=== PATIENT | male | born 1945 | race Caucasian/White ===

== ENCOUNTER → 2017-10-31 | Outpatient (CLI) | payer OTHER ==
[~2017-10-31] MED LIST: ADJUSTABLE COMM1 MIS; ASPI81TA81 PO; BRIN1SUS2 EACH EYE; CETI10CA3 P-ARTICULR; CPMMACHINE; DICL75TA PO; DOCU1CAP39 PO; FINA5TAB2 PO; FLUT1SPR5 EACH NARE; GLUC500T4 PO; LATA0.002 EACH EYE; MULT-65 PO; OMEP20TA93 PO; SACC1CAP3 PO; TAMS0.4C4 PO; VIAG100T PO; VITA500C18 PO; WALKER WHEELS/F1 MIS
[2017-10-31 10:52] LABS: AUTOMATED NEUTROPHIL # 5.2 TH/MM3 (1.8-7.7); BASOPHIL # 0.1 TH/MM3 (0-0.2); EOSINOPHIL # 0.3 TH/MM3 (0-0.4); EOSINOPHIL % 3.8 % (0.0-4.0); HEMATOCRIT 42.3 % (39.0-51.0); HEMOGLOBIN 14.4 GM/DL (13.0-17.0); LYMPH % 19.7 % (9.0-44.0); LYMPHOCYTE # 1.5 TH/MM3 (1.0-4.8); MEAN CELL VOLUME 89.5 FL (80.0-100.0); MEAN CORPUSCULAR HEMOGLOBIN 30.4 PG (27.0-34.0); MEAN PLATELET VOLUME 8.1 FL (7.0-11.0); MONO % 6.6 % (0.0-8.0); MONOCYTE # 0.5 TH/MM3 (0-0.9); NEUT % 68.9 % (16.0-70.0); PLATELET COUNT 257 TH/MM3 (150-450); RED BLOOD COUNT 4.73 MIL/MM3 (4.50-5.90); RED CELL DISTRIBUTION WIDTH 13.4 % (11.6-17.2); WHITE BLOOD COUNT 7.6 TH/MM3 (4.0-11.0)
[2017-10-31 10:59] LABS: PROTHROMBIN TIME - PATIENT 10.6 SEC (9.8-11.6)
[2017-10-31 11:04] LABS: BILIRUBIN, URINE NEG (NEG); BLOOD, URINE SMALL (NEG); GLUCOSE,URINE NEG (NEG); KETONE, URINE NEG (NEG); MUCUS URINE MANY /lpf (OCC); NITRITE,URINE NEG (NEG); SPERM, URINE RARE; URINE COLOR YELLOW (YELLW/STRAW); URINE LEUKOCYTE ESTERASE NEG (NEG)
[2017-10-31 11:26] LABS: ALBUMIN 3.8 GM/DL (3.4-5.0); AST (GOT) 21 U/L (15-37); BICARBONATE 31.5 MEQ/L (21.0-32.0); BLOOD UREA NITROGEN 16 MG/DL (7-18); CALCIUM 9.2 MG/DL (8.5-10.1); CHLORIDE 104 MEQ/L (98-107); CREATININE 1.11 MG/DL (0.60-1.30); GLOMERULAR FILTRATION RATE 65 ML/MIN (>89); GLUCOSE,FASTING 96 MG/DL (74-99); SODIUM (NA) 141 MEQ/L (136-145)
[2017-10-31 11:33] LABS: ALKALINE PHOSPHATASE 83 U/L (45-117); ALT (GPT) 34 U/L (12-78); TOTAL BILIRUBIN ADULT 0.6 MG/DL (0.2-1.0); TOTAL PROTEIN 7.4 GM/DL (6.4-8.2)
== END ==
LOC: CPRE 08:23
PROVIDERS: ATTEND Surgery
DX: Z01.812 Encounter for preprocedural laboratory examination (principal); M79.609 Pain in unspecified limb
CPT/HCPCS: 36415; 80053; 81001; 85025; 85610; 85730

== ENCOUNTER 2017-11-06 09:33 | Inpatient (IN) | payer MEDICARE ==
--- NOTE | 2017-11-01 14:19 | MH ---
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 PAST MEDICAL HISTORY: The patient has history of anxiety, sciatica, and sleep apnea. CURRENT MEDICATIONS: Simbrinza, Omeprazole, tamsulosin, finasteride. He stopped his anti-inflammatory agent. PAST SURGICAL HISTORY: Include hernia repair, appendectomy, tonsillectomy. REVIEW OF SYSTEMS: Noncontributory. FAMILY HISTORY: Noncontributory. SOCIAL HISTORY: Does not smoke or drink. ALLERGIES: NO KNOWN ALLERGIES. PHYSICAL EXAMINATION: GENERAL: We find a 72-year-old male, well-developed, well-nourished, oriented x 3, complaining of pain in both knees. VITAL SIGNS: Blood pressure 138/72, pulse 68 and regular, respirations 18, temperature 98.2, pulse oximetry 96% on room air. HEENT: PERRLA, EOMI. Ears, nose, mouth clear. NECK: Supple. LUNGS: Clear. HEART: Regular rate. ABDOMEN: Soft, positive bowel sounds, nontender. EXTREMITIES: Revealed both knees to have genu varus deformity and crepitance throughout range of motion. He is neurovascularly intact to his toes. IMPRESSION: Severe painful osteoarthritic degeneration with genu varus deformities of both knees. PLAN: Admission for bilateral total knee arthroplasties today. The patient was given prescription for postop pain and anticoagulation control in the office. Plans are going to rehab after surgical stay in the hospital. Chandrakant Trujillo MD JRR/TL , 01:59 PM , 02:17 PM
[~2017-11-06] VITALS: Ht 177.8 cm; Wt 102.3 kg
[~2017-11-06 09:33] MED LIST changes: -ADJUSTABLE COMM1 MIS; -CPMMACHINE; -DOCU1CAP39 PO; -WALKER WHEELS/F1 MIS
[2017-11-06] MEDS ORDERED: POVIDONE IODINE 5% (ANTISEPSIS KIT) 4 APPLICATIONS EACH NARE PRN (11:15)
[2017-11-06] MEDS ORDERED: SODIUM CHLORID 0.9% 500 ML IV PRN (11:15)
[2017-11-06] MEDS ORDERED: METOPROLOL TARTRATE 25 MG TAB PO PRN (11:15)
[2017-11-06] MEDS ORDERED: CHLORHEXIDINE GLUCONATE 2 % 1 PACK (2 CLOTHS) TOPICAL PRN (11:15)
[2017-11-06] MEDS ORDERED: LACTATED RINGER'S 1000 ML IV PRN (11:15)
[2017-11-06] MEDS ORDERED: VANCOMYCIN 1 GM/200 ML INJ 200 ML IV ONE (11:35)
[2017-11-06] MEDS ORDERED: DEXAMETHASONE SOD PHOS 20 MG/5 ML VIAL ONE (11:35)
[2017-11-06] MEDS ORDERED: APREPITANT 40 MG CAP ONE (11:36)
[2017-11-06] MEDS ORDERED: ceFAZolin INJ 1,000 MG VIAL ONE (11:54)
[2017-11-06] MEDS ORDERED: ceFAZolin 2 GM PREMIX 50 ML ONE (11:54)
[2017-11-06] MEDS ORDERED: DICL75TA PO (11:54)
[2017-11-06] MEDS ORDERED: VANCOMYCIN 1 GM/200 ML PREMIX IV SCH (12:00)
[2017-11-06] MEDS ORDERED: ROCURONIUM INJ 50 MG/5 ML SYRINGE IV PUSH ONE (12:00)
[2017-11-06] MEDS ORDERED: DEXAMETHASONE SOD PHOS 20 MG/5 ML VIAL IV PUSH ONE (12:00)
[2017-11-06] MEDS ORDERED: PROPOFOL 200 MG/20 ML AMP IV ONE (12:00)
[2017-11-06] MEDS ORDERED: ceFAZolin 2 GM PREMIX 50 ML IV SCH (12:00)
[2017-11-06] MEDS ORDERED: ePHEDrine/NS 25 MG/5 ML SYRINGE IV ONE (12:00)
[2017-11-06] MEDS ORDERED: LIDOCAINE HCL 1% PF 5 ML SYRINGE OTHER ONE (12:00)
[2017-11-06] MEDS ORDERED: ONDANSETRON HCL 4 MG/2 ML VIAL IV PUSH ONE (12:00)
[2017-11-06] MEDS ORDERED: CHLORHEXIDINE GLUCONATE 4% SOLN 120 ML BTL TOPICAL SCH (12:00)
--- NOTE | 2017-11-06 12:06 | EKG ---
Date Performed: 11/06/2017 Time Performed: 11:12:30 PTAGE: 72 years EKG: Sinus rhythm NORMAL ECG NO PREVIOUS TRACING DOCTOR: Erick Shelton Interpretating Date/Time 11/06/2017 12:05:58
[2017-11-06] MEDS ORDERED: BUPIVACAINE LIPOSO PF 1.3% INJ 20 ML, BUPIVACAINE PF 0.25% INJ 20 ML in SODIUM CHLORIDE... P-ARTICULR SCH (13:00)
[2017-11-06] MEDS ORDERED: TRANEXAMIC ACID IV SCH ×2 (13:00→16:00)
[2017-11-06] MEDS ORDERED: SODIUM CHLORIDE 0.9% IV SCH ×2 (13:00→16:00)
[2017-11-06] MEDS ORDERED: ACETAMINOPHEN 1000 MG/100 ML 100 ML IV ONE (16:25)
[2017-11-06] MEDS ORDERED: MIDAZOLAM HCL 2 MG/2 ML VIAL ONE (16:26)
[2017-11-06] MEDS ORDERED: ADJUSTABLE COMM1 MIS (16:45)
[2017-11-06] MEDS ORDERED: diphenhydrAMINE HCL 50 MG/ML VIAL IV PUSH PRN (16:45)
[2017-11-06] MEDS ORDERED: WALKER WHEELS/F1 MIS (16:45)
[2017-11-06] MEDS ORDERED: NALOXONE HCL 0.4 MG/ML AMP IV PUSH PRN ×2 (16:45)
[2017-11-06] MEDS ORDERED: ACETAMINOPHEN 325 MG TAB PO PRN (16:45)
[2017-11-06] MEDS ORDERED: TEMAZEPAM 15 MG CAP PO PRN (16:45)
[2017-11-06] MEDS ORDERED: TRANEXAMIC ACID INJ 0 MG in SODIUM CHLORIDE 0.9% INJ 100 ML IV SCH (16:45)
[2017-11-06] MEDS ORDERED: HYDROmorphone HCL PF 2 MG/ML VIAL IV PUSH PRN (16:45)
[2017-11-06] MEDS ORDERED: CPMMACHINE (16:45)
[2017-11-06] MEDS ORDERED: Post-op Orders (for Pharmacy) XX ONE (16:45)
--- NOTE | 2017-11-06 16:49 | MP ---
cc: Chandrakant Trujillo MD DATE OF OPERATION: 11/06/2017 DATE OF SURGERY: 11/06/2017. PREOPERATIVE DIAGNOSIS: Osteoarthritic degeneration, right and left knees. POSTOPERATIVE DIAGNOSIS: Osteoarthritic degeneration, right and left knees. SURGERY PERFORMED: Right and left total knee arthroplasties using Consensus components. The left side was done first and the left side components were a size 6 femur, 4 tibia, 10 insert and size 2 patella with 2 batches of DePuy cement. The right knee was done with a size 5 femur, 4 tibia, 14 standard insert and size 2 patella with 2 batches of DePuy cement. SURGEON: Chandrakant Trujillo MD CARDIOLOGY CONSULTANT: SAHIL Peters ANESTHESIA: General intubation. PROCEDURE: After successful induction of anesthesia, the patient is placed on the operating room table in the supine position. The knee is prepped and draped in the usual manner. A tourniquet is inflated at the upper thigh and set to 300 mmHg pressure after exsanguination of the lower extremity. A longitudinal incision is made extending from 3 inches proximal to the superior pole of the patella, across the patella in longitudinal fashion, and down past the insertion of the tibial tubercle into the proximal tibia. The incision is carried down through subcutaneous tissue along the medial aspect of the patella and retinaculum, down through the capsule to expose the knee joint. The patella and patellar tendon are freed up enough to allow the patella to be inverted and retracted off the lateral side of the knee joint. The knee joint is left exposed. Small osteophytes are removed. All soft tissue is removed to allow proper position of the femoral and tibial cutting jig guide. The first femoral jig is then inserted along the distal end of the femur after first measuring to decide whether this is a small, medium, or large component. The notch is then drilled and the tibial cutting guide inserted into the femoral cutting guide, along with the ankle brace to allow for proper measurement of the tibial cutting surface that needed to be resected. Pins are inserted into the tibial cutting jig and femoral cutting jig to hold them in place. An oscillating saw is then used to resect the surface of the tibia. The surface of the tibia is then completely removed using sharp and blunt dissection. The anterior and posterior cuts of the femur are then made as well using an oscillating saw through the cutting guide. All guides are then removed and the varus/valgus angulation cutting guide applied to the femur for proper measurement of the proper amount of valgus. The anterior cutting guide for the femur is then inserted at the anterior femoral cuts made. Next, the first block trial is inserted into the femur to allow for proper condyle drill holes to be made which are then made followed by removal of the bone between the condyles using an oscillating saw as well as the bone removed at the most posterior surface of the condyle. After this, this guide is removed and the chamfer cuts made using the chamfer cutting guide from both anterior and posterior. Next, the femoral trial is then inserted, the tibial surface reflected anterior to expose the tibial surface and a tibial stem guide is inserted after first measuring for a standard, standard plus, large, or large plus surface to be used. After the stem is impacted the trial tibial surface is applied followed by the trial meniscal components. After full range of motion is found with the appropriate length meniscal components varying the patella is prepared by resecting the posterior aspect of the patella using an oscillating saw, inserting a trial. The trial is then removed and the cruciate cutting guide applied using the bur to cut the cruciate cuts. After cruciate cuts are made all trials are removed. The wound is irrigated copiously with antibiotic solution and Water Pik and the actual components inserted into place using the aforementioned Consensus components. The left side was done first and the left side components were a size 6 femur, 4 tibia, 10 insert and size 2 patella with 2 batches of DePuy cement. After the cement has hardened and the components are found to have full range of motion with no instability, the tourniquet is deflated, total tourniquet time being 56 minutes. 60 mL of a mixture of Exparel, 0.25% Marcaine plain and saline was injected around the knee joint for extra pain control. The deep fascia was approximated with #0 Stratafix and supplemented with interrupted #1 Vicryl suture, subcutaneous tissue approximated using interrupted 2-0 Monocryl suture and size 3-0 Stratafix subcu, followed by Prineo dressing and knee immobilizer. No drain utilized. Estimated blood loss on the left knee was 100 mL. Sponge and suture counts were correct. The right knee was then approached and, after successful induction of anesthesia, the patient is placed on the operating room table in the supine position. The knee is prepped and draped in the usual manner. A tourniquet is inflated at the upper thigh and set to 300 mmHg pressure after exsanguination of the lower extremity. A longitudinal incision is made extending from 3 inches proximal to the superior pole of the patella, across the patella in longitudinal fashion, and down past the insertion of the tibial tubercle into the proximal tibia. The incision is carried down through subcutaneous tissue along the medial aspect of the patella and retinaculum, down through the capsule to expose the knee joint. The patella and patellar tendon are freed up enough to allow the patella to be inverted and retracted off the lateral side of the knee joint. The knee joint is left exposed. Small osteophytes are removed. All soft tissue is removed to allow proper position of the femoral and tibial cutting jig guide. The first femoral jig is then inserted along the distal end of the femur after first measuring to decide whether this is a small, medium, or large component. The notch is then drilled and the tibial cutting guide inserted into the femoral cutting guide, along with the ankle brace to allow for proper measurement of the tibial cutting surface that needed to be resected. Pins are inserted into the tibial cutting jig and femoral cutting jig to hold them in place. An oscillating saw is then used to resect the surface of the tibia. The surface of the tibia is then completely removed using sharp and blunt dissection. The anterior and posterior cuts of the femur are then made as well using an oscillating saw through the cutting guide. All guides are then removed and the varus/valgus angulation cutting guide applied to the femur for proper measurement of the proper amount of valgus. The anterior cutting guide for the femur is then inserted at the anterior femoral cuts made. Next, the first block trial is inserted into the femur to allow for proper condyle drill holes to be made which are then made followed by removal of the bone between the condyles using an oscillating saw as well as the bone removed at the most posterior surface of the condyle. After this, this guide is removed and the chamfer cuts made using the chamfer cutting guide from both anterior and posterior. Next, the femoral trial is then inserted, the tibial surface reflected anterior to expose the tibial surface and a tibial stem guide is inserted after first measuring for a standard, standard plus, large, or large plus surface to be used. After the stem is impacted the trial tibial surface is applied followed by the trial meniscal components. After full range of motion is found with the appropriate length meniscal components varying the patella is prepared by resecting the posterior aspect of the patella using an oscillating saw, inserting a trial. The trial is then removed and the cruciate cutting guide applied using the bur to cut the cruciate cuts. After cruciate cuts are made all trials are removed. The wound is irrigated copiously with antibiotic solution and Water Pik and the actual components inserted into place using the aforementioned Consensus components. The right knee was done with a size 5 femur, 4 tibia, 14 standard insert and size 2 patella with 2 batches of DePuy cement. 60 mL of Exparel was used around the knee joint for extra pain control and after meticulous hemostasis was achieved. The deep fascia was again approximated with #0 Stratafix and supplemented with interrupted #1 Vicryl suture which was also used to repair the remains of the medial collateral ligament for extra stability. The subcutaneous tissue was reapproximated with running 2-0 Monocryl and size 3-0 Stratafix, Prineo dressing and knee immobilizer. Once again no drain was utilized. Total tourniquet time on the right being 67 minutes at 300 mmHg pressure. Estimated blood loss was 100 cc. Sponge and suture counts were correct. The patient tolerated the procedure well and left the operating room in satisfactory condition. SAHIL Peters, was present during the entire procedure to include patient positioning and the procedure. The medical necessity of the nurse practitioner first front ventilator was indicated in this case due to the surgical complexity of the case itself. During the surgical case, the automation control technician was working the back table while my surgical services asst SAHIL was directly assisting me. JMD MICHAEL Elizalde/MONICA , 04:27 PM , 04:48 PM
--- NOTE | 2017-11-06 17:07 | HHI.PR ---
Immediate Post Op Note Procedure Date: Nov 06, 2017 Pre Op Diagnosis: Osteoarthritic degeneration of both left and right knees Post Op Diagnosis: Osteoarthritic degeneration of both left and right knees Surgeon: Chandrakant Trujillo MD Marketing/Sales Person(s): Andreea BAXTER Procedure: Bilateral Total Knees Arthroplasty Complications: none Specimen(s) removed: none Estimated blood loss: 200cc Anesthesia: General Drains: None IVF Urinary Output (mLs): 0 (No Pizarro) Tourniquet time (min at mmHg) Left knee 56 mins at 300mmHg Right Knee 67 mins at 300mmHg Patient to: PACU Patient Condition: Good Implant/Devices: SEE IMPLANT LOG (if applicable) Date/Time of Procedure: SEE SURGICAL CARE RECORD Andreea Rai Nov 06, 2017 17:07
[2017-11-06] MEDS ORDERED: *morphine SULFATE 8 MG/ML PERIprocedure ONLY ONE (17:20)
[2017-11-06] MEDS: LACTATED RINGER'S 1000 ML INJ 1,000 ML IV SCH (17:30)
--- NOTE | 2017-11-06 17:46 | RADRPT ---
EXAM DATE: 11/06/2017 5:39 PM EDT AGE/SEX: 72 years / Male INDICATIONS: Post op left total knee. CLINICAL DATA: This is the patient's initial encounter. Patient reports that signs and symptoms have been present for 1 day and indicates a pain score of Nonresponsive. MEDICAL/SURGICAL HISTORY: . Unobtainable. . Unobtainable. COMPARISON: No prior [facility] exams available for comparison. FINDINGS: Left total knee arthroplasty is noted. The hardware is intact. Alignment is anatomic. CONCLUSION: Satisfactory postop appearance Electronically signed by: Evangelista Mayorga MD 11/06/2017 5:44 PM EDT
--- NOTE | 2017-11-06 17:47 | RADRPT ---
EXAM DATE: 11/06/2017 5:38 PM EDT AGE/SEX: 72 years / Male INDICATIONS: Post op right total knee. CLINICAL DATA: This is the patient's initial encounter. Patient reports that signs and symptoms have been present for 1 day and indicates a pain score of Nonresponsive. MEDICAL/SURGICAL HISTORY: . Unobtainable. . Unobtainable. COMPARISON: No prior [facility] exams available for comparison. FINDINGS: Total knee arthroplasty is present. The hardware is intact. Alignment is anatomic. CONCLUSION: Satisfactory postop appearance Electronically signed by: Evangelista Mayorga MD 11/06/2017 5:46 PM EDT
[2017-11-06] MEDS ORDERED: ONDANSETRON ODT 4 MG TAB PO PRN (18:00)
[2017-11-06] MEDS ORDERED: DO NOT ADM ANY ANTICOAGULANT DRUGS PRN (18:15)
--- NOTE | 2017-11-06 19:07 | PD.CONS ---
HPI [facility] Consult Requested By Orthopedic surgery Reason for Consult Medical management Primary Care Physician Dom Rosas MD Diagnoses: History of Present Illness 72-year-old man past medical history of BPH, glaucoma and severe bilateral knees end stage OA, who despite medical management including NSAIDs, physical therapy and corticosteroid injection continue to have severe bilateral knee pain affecting his daily living of activity including ambulation along with muscle pain, was taken to the operating room today and underwent bilateral knee arthroplasties. [facility] was consulted for medical management. Postoperatively, patient vitals stable and has no complaint of chest pain or shortness of breath. Review of Systems Except as stated in HPI: all other systems reviewed are Neg Past Family Social History Allergies: Coded Allergies: No Known Allergies (Unverified , 10/31/17) Past Medical History Glaucoma Severe end-stage knee OA BPH Past Surgical History Bilateral knees arthroplasties November 06, 2017 Hernia repair, appendectomy, tonsillectomy. Reported Medications See EMR Family History Noncontributory Social History Patient denies tobacco, alcohol or illicit drug intake Physical Exam Vital Signs Vital Signs Date Time Temp Pulse Resp B/P (MAP) Pulse Ox O2 Delivery O2 Flow Rate FiO2 11/06/17 18:15 77 16 129/68 (88) 98 Nasal Cannula 3 11/06/17 18:00 80 16 128/68 (88) 99 Nasal Cannula 3 11/06/17 17:45 75 16 136/71 (92) 99 Nasal Cannula 3 11/06/17 17:30 71 16 119/61 (80) 98 Nasal Cannula 3 11/06/17 17:15 67 16 118/61 (80) 94 Nasal Cannula 3 11/06/17 17:00 98.2 75 16 132/66 (88) 97 Nasal Cannula 3 11/06/17 11:25 97.7 80 16 158/82 (107) 98 Physical Exam GENERAL: This is a well-nourished, well-developed patient, in no apparent distress. SKIN: No rashes, ecchymoses or lesions. Cool and dry. HEAD: Atraumatic. Normocephalic. No temporal or scalp tenderness. EYES: Pupils equal round and reactive. Extraocular motions intact. No scleral icterus. No injection or drainage. ENT: Nose without bleeding, purulent drainage or septal hematoma. Throat without erythema, tonsillar hypertrophy or exudate. Uvula midline. Airway patent. NECK: Trachea midline. No JVD or lymphadenopathy. Supple, nontender, no meningeal signs. CARDIOVASCULAR: Regular rate and rhythm without murmurs, gallops, or rubs. RESPIRATORY: Clear to auscultation. Breath sounds equal bilaterally. No wheezes , rales, or rhonchi. GASTROINTESTINAL: Abdomen soft, non-tender, nondistended. No hepato-splenomegaly , or palpable masses. No guarding. MUSCULOSKELETAL: Extremities without clubbing, cyanosis, or edema. s/p B knees repair-neurovascular intact NEUROLOGICAL: Awake and alert. Cranial nerves II through XII intact. Motor and sensory grossly within normal limits. Five out of 5 muscle strength in all muscle groups. Normal speech. Imaging Last Impressions Knee X-Ray 11/06/17 1633 Signed Impressions: CONCLUSION: Satisfactory postop appearance Assessment and Plan Assessment and Plan 72-year-old man with s/p Bilateral knees arthroplasties November 06, 2017 Management per orthopedic surgery Continue current pain management Eliquis for DVT prophylaxis PT consult to treat any above History of glaucoma, BPH Resume outpatient medications DVT prophylaxis: Eliquis Code Status Full code Discussed Condition With Patient Albert Yeboah MD Nov 06, 2017 19:07
[2017-11-06] MEDS ORDERED: RESP: ALBUTEROL 2.5 MG/IPRATROPIUM 0.5 MG NEB (PRN) NEB (19:15)
[2017-11-06 19:28] VITALS: BP 159/73; PULSE 74; RESP 16; TEMP 97.5; O2SAT 98
[2017-11-06] MEDS: LATANOPROST 0.005% OPHT SOLN 2.5 ML BTL EACH EYE SCH (21:00)
[2017-11-06] MEDS: TAMSULOSIN HCL 0.4 MG CAP PO SCH (21:16)
[2017-11-06] MEDS: FLUTICASONE PROPIONATE 50 MCG/ACT 16 GM NASAL SPRAY NASAL SCH (21:16)
[2017-11-06] MEDS: BRINZOLAMIDE BRIMONIDINE OPTH EACH EYE SCH (22:00)
[2017-11-07] VITALS (7 sets, daily range): BP systolic 110–131; BP diastolic 55–61; PULSE 66–86; RESP 16–17; TEMP 97.9–99.6; O2SAT 92–97
[2017-11-07] MEDS: ACETAMINOPHEN/HYDROcodone 325 MG/7.5 MG TAB PO PRN ×6 (00:38→23:19)
[2017-11-07 05:16] LABS: HEMATOCRIT 34.2 % (39.0-51.0); HEMOGLOBIN 11.6 GM/DL (13.0-17.0)
[2017-11-07] MEDS: BRINZOLAMIDE BRIMONIDINE OPTH EACH EYE SCH ×3 (06:00→22:00)
[2017-11-07] MEDS: LACTATED RINGER'S 1000 ML INJ 1,000 ML IV SCH ×2 (06:30→12:32)
[2017-11-07] MEDS ORDERED: NON-FORMULARY DRUG (Multiple Vitamin (Multi-Vitamin Daily) 1 TAB) PO SCH (09:00)
[2017-11-07] MEDS ORDERED: NON-FORMULARY DRUG (Glucosamine-Chondroitin 1 TAB) PO SCH (09:00)
[2017-11-07] MEDS: FLUTICASONE PROPIONATE 50 MCG/ACT 16 GM NASAL SPRAY NASAL SCH ×2 (09:00→20:34)
[2017-11-07] MEDS: LACTOBACILLUS ACIDOPHILUS TAB PO SCH (09:17)
[2017-11-07] MEDS: FINASTERIDE 5 MG TAB PO SCH (09:17)
[2017-11-07] MEDS: CETIRIZINE HCL 10 MG TAB PO SCH (09:17)
[2017-11-07] MEDS: PANTOPRAZOLE SOD 20 MG DELAYED RELEASE TAB PO SCH (09:17)
[2017-11-07] MEDS: ASCORBIC ACID 500 MG TAB PO SCH (09:17)
[2017-11-07] MEDS: ASPIRIN EC 81 MG TABEC PO SCH (09:17)
--- NOTE | 2017-11-07 09:36 | PD.ORT.PN ---
Subjective Subjective Remarks Pt comfortable in bed at present. Pain upon moving legs. Objective Vitals Vital Signs Date Time Temp Pulse Resp B/P (MAP) Pulse Ox O2 Delivery O2 Flow Rate FiO2 11/07/17 08:00 98.4 79 16 117/58 (77) 93 11/07/17 04:20 98.6 66 17 114/55 (74) 97 11/07/17 00:25 97.9 86 17 125/61 (82) 94 11/06/17 19:28 97.5 74 16 159/73 (101) 98 11/06/17 18:15 77 16 129/68 (88) 98 Nasal Cannula 3 11/06/17 18:00 80 16 128/68 (88) 99 Nasal Cannula 3 11/06/17 17:45 75 16 136/71 (92) 99 Nasal Cannula 3 11/06/17 17:30 71 16 119/61 (80) 98 Nasal Cannula 3 11/06/17 17:15 67 16 118/61 (80) 94 Nasal Cannula 3 11/06/17 17:00 98.2 75 16 132/66 (88) 97 Nasal Cannula 3 11/06/17 11:25 97.7 80 16 158/82 (107) 98 I/O 11/06/17 11/06/17 11/06/17 11/07/17 11/07/17 11/07/17 07:00 15:00 23:00 07:00 15:00 23:00 Intake Total 2410.44 ml 480 ml Output Total 200 ml 950 ml Balance 2210.44 ml -470 ml Intake Oral 480 ml IV Total 410.44 ml Other 2000 ml Output Urine Total 950 ml Estimated Blood Loss 200 ml # Bowel Movements 0 Result Diagram: 11/07/17 0444 Imaging Last 24 hours Impressions Knee X-Ray 11/06/17 1633 Signed Impressions: CONCLUSION: Satisfactory postop appearance Objective Remarks Dressings dry and intact. No calf tenderness. Assessment & Plan Ortho Post Op Day #: 1 Problem List: Assessment and Plan OOB with PT today. Plan on [facility] tomorrow. Chandrakant Trujillo MD Nov 07, 2017 09:36
[2017-11-07] MEDS: APIXABAN 2.5 MG TABLET PO SCH ×2 (11:35→20:35)
[2017-11-07] MEDS ORDERED: SODIUM CHLORID 0.9% 500 ML INJ 500 ML IV SCH (14:45)
--- NOTE | 2017-11-07 14:58 | HHI.PR ---
Subjective Remarks Follow-up for bilateral TKA, BPH. The patient is seen after working with physical therapy. He states he feels very weak, clammy, diaphoretic, and lightheaded. He states he feels like he could pass out. Patient returned to bed. Denies any nausea, chest pain, palpitations, shortness of breath, or abdominal complaints. PT at bedside reports patient's orthostatic vital signs showed systolic BP dropped from 126 while lying to 104 upon standing. He has otherwise been tolerating oral intake. Last BM 11/06 prior to surgery. Denies any fevers or chills. Denies any other medical complaints at this time. Objective Vitals Vital Signs Date Time Temp Pulse Resp B/P (MAP) Pulse Ox O2 Delivery O2 Flow Rate FiO2 11/07/17 12:00 98.5 71 16 131/60 (83) 96 11/07/17 08:00 98.4 79 16 117/58 (77) 93 11/07/17 04:20 98.6 66 17 114/55 (74) 97 11/07/17 00:25 97.9 86 17 125/61 (82) 94 11/06/17 19:28 97.5 74 16 159/73 (101) 98 11/06/17 18:15 77 16 129/68 (88) 98 Nasal Cannula 3 11/06/17 18:00 80 16 128/68 (88) 99 Nasal Cannula 3 11/06/17 17:45 75 16 136/71 (92) 99 Nasal Cannula 3 11/06/17 17:30 71 16 119/61 (80) 98 Nasal Cannula 3 11/06/17 17:15 67 16 118/61 (80) 94 Nasal Cannula 3 11/06/17 17:00 98.2 75 16 132/66 (88) 97 Nasal Cannula 3 I/O 11/06/17 11/06/17 11/06/17 11/07/17 11/07/17 11/07/17 07:00 15:00 23:00 07:00 15:00 23:00 Intake Total 2410.44 ml 480 ml Output Total 200 ml 950 ml Balance 2210.44 ml -470 ml Intake Oral 480 ml IV Total 410.44 ml Other 2000 ml Output Urine Total 950 ml Estimated Blood Loss 200 ml # Bowel Movements 0 Result Diagram: 11/07/17 0444 Imaging Last Impressions Knee X-Ray 11/06/17 1633 Signed Impressions: CONCLUSION: Satisfactory postop appearance Objective Remarks GENERAL: Well-nourished, well-developed elderly male patient in NAD. SKIN: Warm, clammy, diaphoretic. HEENT: Normocephalic. Atraumatic. Pupils equal and round. Mucous membranes pink and moist. CARDIOVASCULAR: Regular rate and rhythm. No murmur appreciated. RESPIRATORY: No accessory muscle use. Clear to auscultation. Breath sounds equal bilaterally. GASTROINTESTINAL: Abdomen soft, non-tender, nondistended. Normoactive bowel sounds x4. MUSCULOSKELETAL: Bilateral knees with midline anterior surgical incisions. NEUROLOGICAL: Awake and alert. No obvious cranial nerve deficits. Motor grossly within normal limits. Moving all extremities spontaneously. Normal speech. PSYCHIATRIC: Appropriate mood and affect; insight and judgment normal. Procedures 11/06/17 -bilateral total knee arthroplasty by Dr. Trujillo Medications and IVs Current Medications Medications (Trade) Dose Ordered Sig/Orin Route Start Time Stop Time Status Last Admin (Ecotrin Ec) 81 mg DAILY PO 11/07/17 09:00 11/07/17 09:17 (Proscar) 5 mg DAILY PO 11/07/17 09:00 11/07/17 09:17 (Xalatan 0.005% Opth Soln) 1 drop HS EACH EYE 11/06/17 21:00 11/06/17 21:00 (Flomax) 0.4 mg HS PO 11/06/17 21:00 11/06/17 21:16 (Vitamin C) 500 mg DAILY PO 11/07/17 09:00 11/07/17 09:17 Patient Own Medication PT OWN MED: (Brinzolamide-Brimon... Q8HR EACH EYE 11/06/17 22:00 11/07/17 12:32 (ZyrTEC) 10 mg DAILY PO 11/07/17 09:00 11/07/17 09:17 (Flonase Santiago Spr) 1 spray BID NASAL 11/06/17 21:00 11/07/17 09:00 (Protonix) 20 mg DAILY PO 11/07/17 09:00 11/07/17 09:17 (Lactinex) 1 tab DAILY PO 11/07/17 09:00 11/07/17 09:17 Lactated Ringer's 1,000 ml @ 80 mls/hr [id number] IV 11/06/17 18:00 11/06/17 17:30 (Banning 7.5-325 Mg) 1 tab Q4H PRN PO 11/06/17 16:45 11/07/17 12:29 (Banning 7.5-325 Mg) 2 tab Q4H PRN PO 11/06/17 16:45 11/07/17 06:32 (Tylenol) 650 mg Q6H PRN PO 11/06/17 16:45 (Theragran M Tab) 1 tab BID PO 11/07/17 21:00 01/06/18 20:59 (Zofran Odt) 4 mg Q6H PRN PO 11/06/17 18:00 (Colace) 100 mg BID PO 11/07/17 21:00 (Restoril) 15 mg HS PRN PO 11/06/17 16:45 (Bacitracin Oint Packet) 0.9 gm UNSCH X1 PRN TOP 11/08/17 10:15 11/10/17 10:14 (Narcan Inj) 0.4 mg UNSCH PRN IV PUSH 11/06/17 16:45 (Benadryl Inj) 25 mg Q6H PRN IV PUSH 11/06/17 16:45 (Narcan Inj) 0.4 mg UNSCH PRN IV PUSH 11/06/17 16:45 (Eliquis) 2.5 mg BID PO 11/07/17 11:00 11/07/17 11:35 (Dilaudid Pf Inj) 1 mg Q4H PRN IV PUSH 11/06/17 16:45 ([facility] [place] [facility] Information) ALL NURSING DEPARTME... UNSCH PRN .XX 11/06/17 18:15 11/07/17 18:14 (Duoneb Neb) 1 ampule Q2HR NEB PRN NEB 11/06/17 19:15 Sodium Chloride 500 ml @ 250 mls/hr Q2H IV 11/07/17 14:45 11/07/17 16:44 UNV A/P Assessment and Plan 72-year-old male with history of BPH, glaucoma, severe osteoarthritis of bilateral knees, admitted to hospital for bilateral total knee arthroplasty done 11/[address] Trujillo. Hospitalist consulted for medical management. Severe osteoarthritis s/p bilateral TKA: Surgery done 11/[address] Trujillo -Continue management per orthopedics -DVT prophylaxis with Eliquis per ortho -Continue physical therapy, plan for patient to DC to [facility] possibly 11/08 Pre-Syncope/Lightheadedness: suspect side effects of anesthesia and pain medications. Patient very clammy and diaphoretic. -Orthostatic blood pressure dropped from 126 to 104 upon standing -Give IVF bolus with 500cc x1 now -Check stat CBC, BMP, Troponin, CKMB, EKG -Monitor on telemetry -Supportive treatment for now -May need further near syncope work up if symptoms persist BPH: chronic -continue patient's tamsulosin and finasteride (consider holding if orthostatics still positive) GERD: chronic -continue patient's PPI DVT Prophylaxis: on Ami Jamison PA-C Nov 07, 2017 2:58 pm
[2017-11-07 15:24] LABS: BASOPHIL % 0.2 % (0.0-2.0); EOSINOPHIL % 0.1 % (0.0-4.0); HEMOGLOBIN 10.8 GM/DL (13.0-17.0); LYMPH % 8.4 % (9.0-44.0); LYMPHOCYTE # 0.9 TH/MM3 (1.0-4.8); MEAN CELL VOLUME 89.4 FL (80.0-100.0); MEAN CORPUSCULAR HEMOGLOBIN 30.1 PG (27.0-34.0); MEAN CORPUSCULAR HGB CONC 33.7 % (32.0-36.0); MONO % 10.8 % (0.0-8.0); MONOCYTE # 1.2 TH/MM3 (0-0.9); NEUT % 80.5 % (16.0-70.0); PLATELET COUNT 222 TH/MM3 (150-450); RED BLOOD COUNT 3.58 MIL/MM3 (4.50-5.90); RED CELL DISTRIBUTION WIDTH 13.4 % (11.6-17.2); WHITE BLOOD COUNT 11.2 TH/MM3 (4.0-11.0)
[2017-11-07 15:40] LABS: BICARBONATE 24.2 MEQ/L (21.0-32.0); CALCIUM 8.2 MG/DL (8.5-10.1); CREATININE 1.17 MG/DL (0.60-1.30)
[2017-11-07 16:12] LABS: TROPONIN I LESS THAN 0.02 NG/ML (0.02-0.05)
--- NOTE | 2017-11-07 17:13 | EKG ---
Date Performed: 11/07/2017 Time Performed: 15:01:42 PTAGE: 72 years EKG: Sinus rhythm MODERATE INTRAVENTRICULAR CONDUCTION DELAY NONSPECIFIC T-WAVE ABNORMALITY BORDERLINE ECG PREVIOUS TRACING : 11/06/2017 11.12 Compared to previous tracing, T wave changes present DOCTOR: Amos Hansen Interpretating Date/Time 11/07/2017 17:12:15
[2017-11-07] MEDS ORDERED: POTASSIUM CHLORIDE 20 MEQ CONTROLLED RELEASE TAB PO ONE (18:30)
[2017-11-07] MEDS ORDERED: SODIUM CHLOR 0.9% 1000 ML INJ 1,000 ML IV SCH (18:30)
[2017-11-07 19:10] LABS: BILIRUBIN, URINE NEG (NEG); BLOOD, URINE NEG (NEG); GLUCOSE,URINE NEG (NEG); KETONE, URINE NEG (NEG); NITRITE,URINE NEG (NEG); URINE COLOR YELLOW (YELLW/STRAW); URINE LEUKOCYTE ESTERASE NEG (NEG)
[2017-11-07] MEDS: LATANOPROST 0.005% OPHT SOLN 2.5 ML BTL EACH EYE SCH (20:33)
[2017-11-07] MEDS: TAMSULOSIN HCL 0.4 MG CAP PO SCH (20:35)
[2017-11-07] MEDS: DOCUSATE SODIUM 100 MG CAP PO SCH (20:35)
[2017-11-07] MEDS: MULTIVITAMINS/MINERALS THERAPEUTIC TAB PO SCH (20:35)
[2017-11-07] MEDS: MAGNESIUM HYDROXIDE SUSP 30 ML CUP PO SCH (20:35)
[2017-11-07] MEDS: POLYETHYLENE GLYCOL 17 GM PKG PO SCH (20:36)
[2017-11-08] VITALS (7 sets, daily range): BP systolic 102–142; BP diastolic 55–75; PULSE 68–118; RESP 17–19; TEMP 97.5–100; O2SAT 93–97
[2017-11-08] MEDS ORDERED: METOPROLOL TARTRATE 25 MG TAB PO ONE (03:00)
[2017-11-08] MEDS: BRINZOLAMIDE BRIMONIDINE OPTH EACH EYE SCH ×3 (05:55→22:00)
[2017-11-08] MEDS: LACTATED RINGER'S 1000 ML INJ 1,000 ML IV SCH ×2 (07:30→20:00)
--- NOTE | 2017-11-08 08:09 | PD.ORT.PN ---
Subjective Subjective Remarks Pt comfortable in bed at present. Fairly comfortable. Objective Vitals Vital Signs Date Time Temp Pulse Resp B/P (MAP) Pulse Ox O2 Delivery O2 Flow Rate FiO2 11/08/17 08:00 98.7 118 19 111/75 (87) 97 11/08/17 04:30 97.5 105 17 107/59 (75) 97 11/08/17 00:25 97.7 79 17 136/55 (82) 93 11/07/17 20:15 99.6 77 17 118/61 (80) 95 11/07/17 17:23 99.2 11/07/17 16:00 98.4 71 16 110/58 (75) 92 11/07/17 12:00 98.5 71 16 131/60 (83) 96 I/O 11/07/17 11/07/17 11/07/17 11/08/17 11/08/17 11/08/17 07:00 15:00 23:00 07:00 15:00 23:00 Intake Total 480 ml 100 ml 980 ml 480 ml Output Total 950 ml 690 ml 1000 ml Balance -470 ml 100 ml 290 ml -520 ml Intake Oral 480 ml 480 ml 480 ml IV Total 100 ml 500 ml Output Urine Total 950 ml 690 ml 1000 ml # Bowel Movements 0 0 Result Diagram: 11/07/17 1458 11/07/17 1458 Imaging Last 24 hours Impressions Knee X-Ray 11/06/17 1633 Signed Impressions: CONCLUSION: Satisfactory postop appearance Objective Remarks Dressings dry and intact. No calf tenderness. Assessment & Plan Ortho Post Op Day #: 2 Problem List: Assessment and Plan OOB with PT today. Plan on [facility] today if ok with medical. Chandrakant Trujillo MD Nov 08, 2017 08:09
--- NOTE | 2017-11-08 08:22 | HHI.DS ---
Discharge Summary Admission Date Nov 06, 2017 at 10:49 Discharge Date: Nov 08, 2017 Admitting Diagnosis osteoarthritic degeneration both knees Diagnosis: (1) Status post total bilateral knee replacement Diagnosis: Principal ICD Codes: Z96.653 - Presence of artificial knee joint, bilateral Brief History This is a 72 year old male patient CBC/BMP: 11/07/17 1458 11/07/17 1458 Significant Findings Laboratory Tests Test 11/07/17 04:44 11/07/17 14:58 11/07/17 18:46 11/08/17 07:51 Hemoglobin 11.6 GM/DL (13.0-17.0) 10.8 GM/DL (13.0-17.0) Hematocrit 34.2 % (39.0-51.0) 32.0 % (39.0-51.0) White Blood Count 11.2 TH/MM3 (4.0-11.0) Red Blood Count 3.58 MIL/MM3 (4.50-5.90) Neutrophils (%) (Auto) 80.5 % (16.0-70.0) Lymphocytes (%) (Auto) 8.4 % (9.0-44.0) Monocytes (%) (Auto) 10.8 % (0.0-8.0) Neutrophils # (Auto) 9.0 TH/MM3 (1.8-7.7) Lymphocytes # (Auto) 0.9 TH/MM3 (1.0-4.8) Monocytes # (Auto) 1.2 TH/MM3 (0-0.9) Blood Urea Nitrogen 28 MG/DL (7-18) Random Glucose 154 MG/DL (74-106) Calcium Level 8.2 MG/DL (8.5-10.1) Potassium Level 3.4 MEQ/L (3.5-5.1) Estimat Glomerular Filtration Rate 61 ML/MIN (>89) Total Creatine Kinase 368 U/L (39-308) Troponin I LESS THAN 0.02 NG/ML PE at Discharge Dressings dry and intact. No calf tenderness. Hospital Course Pt underwent bilateral tka's on day of admission. He received a course of prophylactic IV antibiotics and started on anticoagulation therapy. He continued to improve tolerating PO pain meds, food and fluids well. His afib managed by medical. He was discharged by ortho on POD #2 to [facility] for continuation of care in good condition as far as orthopedics is concerned. Pt Condition on Discharge: Good Discharge Disposition: Rehab Inpatient Discharge Instructions Diet Instructions: As Tolerated, No Restrictions Activities You Can Perform: Full Weight Bearing, Shower Only-No Bath Activities to Avoid: Bathing, Driving Chandrakant Trujillo MD Nov 08, 2017 08:22
[2017-11-08 08:48] LABS: BASOPHIL % 0.4 % (0.0-2.0); EOSINOPHIL % 0.4 % (0.0-4.0); HEMATOCRIT 33.6 % (39.0-51.0); HEMOGLOBIN 11.2 GM/DL (13.0-17.0); LYMPH % 10.8 % (9.0-44.0); LYMPHOCYTE # 1.3 TH/MM3 (1.0-4.8); MEAN CELL VOLUME 90.7 FL (80.0-100.0); MEAN CORPUSCULAR HEMOGLOBIN 30.1 PG (27.0-34.0); MEAN CORPUSCULAR HGB CONC 33.2 % (32.0-36.0); MEAN PLATELET VOLUME 8.5 FL (7.0-11.0); MONO % 11.3 % (0.0-8.0); MONOCYTE # 1.3 TH/MM3 (0-0.9); NEUT % 77.1 % (16.0-70.0); PLATELET COUNT 216 TH/MM3 (150-450); RED CELL DISTRIBUTION WIDTH 13.4 % (11.6-17.2); WHITE BLOOD COUNT 11.6 TH/MM3 (4.0-11.0)
[2017-11-08] MEDS ORDERED: DILTIAZEM HCL 30 MG TAB PO ONE (09:00)
[2017-11-08 09:11] LABS: BICARBONATE 27.3 MEQ/L (21.0-32.0); CALCIUM 8.1 MG/DL (8.5-10.1); CREATININE 1.11 MG/DL (0.60-1.30); MAGNESIUM 2.5 MG/DL (1.5-2.5)
[2017-11-08] MEDS: APIXABAN 2.5 MG TABLET PO SCH (09:18)
[2017-11-08] MEDS: ASCORBIC ACID 500 MG TAB PO SCH (09:18)
[2017-11-08] MEDS: CETIRIZINE HCL 10 MG TAB PO SCH (09:18)
[2017-11-08] MEDS: ASPIRIN EC 81 MG TABEC PO SCH (09:18)
[2017-11-08] MEDS: FINASTERIDE 5 MG TAB PO SCH (09:18)
[2017-11-08] MEDS: PANTOPRAZOLE SOD 20 MG DELAYED RELEASE TAB PO SCH (09:18)
[2017-11-08] MEDS: LACTOBACILLUS ACIDOPHILUS TAB PO SCH (09:18)
[2017-11-08] MEDS: MULTIVITAMINS/MINERALS THERAPEUTIC TAB PO SCH ×2 (09:18→21:52)
[2017-11-08] MEDS: DOCUSATE SODIUM 100 MG CAP PO SCH ×2 (09:19→21:55)
[2017-11-08] MEDS: MAGNESIUM HYDROXIDE SUSP 30 ML CUP PO SCH ×2 (09:20→21:00)
[2017-11-08] MEDS: FLUTICASONE PROPIONATE 50 MCG/ACT 16 GM NASAL SPRAY NASAL SCH ×2 (09:22→21:00)
--- NOTE | 2017-11-08 09:31 | HHI.PR ---
Subjective Remarks I spoke w Dr. Trujillo, pt's orthopedic surgeon who notified me that overnight pt had an episode of atrial fib w RVR. Apparently pt told him that he has been having episodes where he felt his heart beating fast on and off but never told anyone about it and has never been evaluated by a cigarette packer. I evaluated the patient, he tells me that he gets very lightheaded whenever he tries to get up. He feels his HR fast at times when laying down but currently denies any CP/SOB/N/V/lightheadedness or dizziness. Pt also states he he is having trouble urinating since the surgery however admits that he sees a urologist (Dr. Hagan) as an outpatient for BPH and is on meds. He complains of suprapubic pain at this time and states that he has been having trouble urinating laying down Objective Vitals Vital Signs Date Time Temp Pulse Resp B/P (MAP) Pulse Ox O2 Delivery O2 Flow Rate FiO2 11/08/17 08:00 98.7 118 19 111/75 (87) 97 11/08/17 04:30 97.5 105 17 107/59 (75) 97 11/08/17 00:25 97.7 79 17 136/55 (82) 93 11/07/17 20:15 99.6 77 17 118/61 (80) 95 11/07/17 17:23 99.2 11/07/17 16:00 98.4 71 16 110/58 (75) 92 11/07/17 12:00 98.5 71 16 131/60 (83) 96 I/O 11/07/17 11/07/17 11/07/17 11/08/17 11/08/17 11/08/17 07:00 15:00 23:00 07:00 15:00 23:00 Intake Total 480 ml 100 ml 980 ml 480 ml Output Total 950 ml 690 ml 1000 ml Balance -470 ml 100 ml 290 ml -520 ml Intake Oral 480 ml 480 ml 480 ml IV Total 100 ml 500 ml Output Urine Total 950 ml 690 ml 1000 ml # Bowel Movements 0 0 Result Diagram: 11/08/17 0751 11/08/17 0751 Imaging Last Impressions Knee X-Ray 11/06/17 1633 Signed Impressions: CONCLUSION: Satisfactory postop appearance Objective Remarks GENERAL:laying in bed, appears uncomfortable CARDIOVASCULAR: irregularly irregular, On TELE HR jumped to 140's RESPIRATORY: No accessory muscle use. Clear to auscultation. Breath sounds equal bilaterally. GASTROINTESTINAL: Abdomen soft, nondistended, suprapubic tenderness noted. Normoactive bowel sounds x4. MUSCULOSKELETAL: Bilateral knees on splints w dressings in place NEUROLOGICAL: Awake and alert. No obvious cranial nerve deficits. Normal speech. moves upper extremities w no difficulties. able to wiggles his toes Procedures 11/06/17 -bilateral total knee arthroplasty by Dr. Trujillo A/P Assessment and Plan 72-year-old male with history of BPH, glaucoma, severe osteoarthritis of bilateral knees, admitted to hospital for bilateral total knee arthroplasty done 11/[address] Trujillo. Hospitalist consulted for medical management. Severe osteoarthritis s/p bilateral TKA: Surgery done 11/[address] Trujillo -Continue management per orthopedics -DVT prophylaxis with Eliquis per ortho -Continue physical therapy, plan for patient to DC to [facility] Atrial fibrillation w rvr: overnight EKG showed atrial fib w rvr. Currently TELE shows a HR in the 140's at times goes down to 110"s. PT received a dose of metoprolol overnight. I will start him on cardizem po 30mg q6hrs w first dose now. I have consulted cardiology as apparently this has been going on for years but pt never mentioned this to his PCP and this was never diagnosed. He is currently on eliquis post op. Pre-Syncope/Lightheadedness: suspect side effects of anesthesia and pain medications. In addition could be from atrial fib w rvr. -Orthostatic blood pressure dropped from 126 to 104 upon standing -s/p 500cc x1 now -Hb stable at 11.2. CE yesterday was wnl. Pt denies any CP. Will trend CE. -Monitor on telemetry BPH: chronic -continue patient's tamsulosin and finasteride. I have ordered RN to bladder scan pt, he may be retaining causing the suprapubic discomfort. If he is retaining will straight cath but if this continues will need to place pozo cath GERD: chronic -continue patient's PPI DVT Prophylaxis: on Eliquis Discharge Planning pt is in atrial fib w RVR. Trying to control it w po cardizem but if no improvement, will transfer to [facility] and start amio gtt. cardiology consult in place. I recommend holding discharge until HR better controlled. bladder scan pending Lynn Harper MD Nov 08, 2017 09:31
[2017-11-08] MEDS ORDERED: BACITRACIN OINT 0.9 GM PKT TOP PRN (10:15)
[2017-11-08] MEDS: ACETAMINOPHEN/HYDROcodone 325 MG/7.5 MG TAB PO PRN ×2 (11:02→21:54)
[2017-11-08 11:56] LABS: TROPONIN I 1.38 NG/ML (0.02-0.05)
[2017-11-08] MEDS ORDERED: DILTIAZEM HCL 30 MG TAB PO SCH ×2 (12:00→18:00)
--- NOTE | 2017-11-08 16:14 | MB ---
cc: Amos Hansen MD DATE: 11/08/2017 HISTORY OF PRESENT ILLNESS: A 72-year-old male with a history of hypertension and recent bilateral knee replacement by Dr. Trujillo. He developed atrial fibrillation early this morning with rapid ventricular response. He was started on p.o. diltiazem. Rate was better controlled and he spontaneously converted to sinus rhythm early afternoon today. He has not had any chest pain or shortness of breath. He has orthostatic dizziness, which he has had even prior to this episode. He gets occasional episodes of palpitations when he lays down. He has had mild lower extremity edema. PAST MEDICAL HISTORY: Positive for hypertension, glaucoma, knee osteoarthritis, BPH, bilateral knee arthroplasties 2 days ago, hernia repair, appendectomy, tonsillectomy. MEDICATIONS: Include diltiazem 30 mg q. 6 hours, multivitamin, docusate, MiraLax, magnesium, Eliquis 2.5 mg twice a day, baby aspirin, Proscar, vitamin C, Zyrtec, Protonix, Lactinex, eyedrops, tamsulosin, Flonase, and p.r.n. pain medications. ALLERGIES: NONE. SOCIAL HISTORY: The patient does not smoke. He does not drink alcohol. He is . FAMILY HISTORY: Positive for coronary artery disease in both parents at a later age. REVIEW OF SYSTEMS: Otherwise negative. PHYSICAL EXAMINATION: VITAL SIGNS: Blood pressure 132/62, pulse 95. Initially, pulse 80 and regular. HEENT: Negative. NECK: 2+ carotid upstrokes, no bruits. LUNGS: Clear. HEART: Regular with no murmur or gallop. ABDOMEN: Soft. EXTREMITIES: With trace edema, status post bilateral knee surgery, 1+ distal pulses. NEUROLOGIC: Grossly nonfocal. DIAGNOSTIC DATA: EKG was reviewed and showed normal sinus rhythm, mild intraventricular conduction delay and nonspecific T-wave changes. Telemetry showed atrial fibrillation with rapid ventricular response. Telemetry now shows a normal sinus rhythm. LABORATORY DATA: Hemoglobin 11.2. Potassium 4.0, creatinine 1.1. CK 368, 387 and 348. CK-MB 2.4, 2.9 and 3.2. Troponin less than 0.02 and 1.38. DIAGNOSES: 1. Paroxysmal atrial fibrillation with rapid ventricular response. 2. Mildly elevated troponin. 3. Hypertension. 4. Orthostatic hypotension. 5. Status post bilateral knee arthroplasty. 6. Glaucoma. 7. Benign prostatic hypertrophy. DISPOSITION: Mr. Bowden has spontaneously converted to sinus rhythm. We will start low-dose beta melchor, metoprolol 12.5 mg twice a day. We will increase his Eliquis to 5 mg twice a day given his diagnosis of atrial fibrillation and increased risk of stroke. We will check serial enzymes. We will start a statin and check fasting lipids. I will follow him for cardiology during his hospitalization. MD JAYNA Fisher/MONICA , 03:37 PM , 04:13 PM MTDJamal
[2017-11-08 16:51] LABS: TROPONIN I 4.81 NG/ML (0.02-0.05)
--- NOTE | 2017-11-08 17:08 | HHI.PR ---
Addendum to Inpatient Note Addendum Reason: Additional Documentation Additional Information Pt's troponin increased to 4.81. Still denies any CP. I notified Dr. Hansen who recommends stopping the eliquis and switching to a heparin gtt w bolus. Orders have been put in and RN notified. Monitor pt closely Lynn Harper MD Nov 08, 2017 17:08
[2017-11-08] MEDS ORDERED: HEPARIN SODIUM - IV 10,000 UNITS/10 ML VIAL IV PUSH ONE (17:15)
[2017-11-08 17:41] LABS: HEMATOCRIT 31.3 % (39.0-51.0); HEMOGLOBIN 10.6 GM/DL (13.0-17.0); MEAN CELL VOLUME 90.6 FL (80.0-100.0); MEAN CORPUSCULAR HEMOGLOBIN 30.8 PG (27.0-34.0); PLATELET COUNT 199 TH/MM3 (150-450); RED BLOOD COUNT 3.45 MIL/MM3 (4.50-5.90); RED CELL DISTRIBUTION WIDTH 13.5 % (11.6-17.2); WHITE BLOOD COUNT 10.9 TH/MM3 (4.0-11.0)
[2017-11-08 17:49] LABS: INTERNATIONAL NORMALIZED RATIO 1.1 RATIO; PROTHROMBIN TIME - PATIENT 10.8 SEC (9.8-11.6)
--- NOTE | 2017-11-08 18:36 | EKG ---
Date Performed: 11/08/2017 Time Performed: 02:46:22 PTAGE: 72 years EKG: Atrial fibrillation with rapid ventricular response Extensive ST-T changes Abnormal ECG PREVIOUS TRACING : 11/07/2017 15.01 Compared to previous tracing, SR no longer present DOCTOR: Amos Hansen Interpretating Date/Time 11/08/2017 18:35:17
[2017-11-08] MEDS ORDERED: APIXABAN 5 MG TABLET PO SCH (21:00)
[2017-11-08] MEDS: POLYETHYLENE GLYCOL 17 GM PKG PO SCH (21:00)
[2017-11-08] MEDS: LATANOPROST 0.005% OPHT SOLN 2.5 ML BTL EACH EYE SCH (21:00)
[2017-11-08] MEDS: HEPARIN-D5W 25,000 U/250 ML 250 ML IV PRN (21:38)
[2017-11-08] MEDS: ATORVASTATIN 80 MG TAB PO SCH (21:52)
[2017-11-08] MEDS: TAMSULOSIN HCL 0.4 MG CAP PO SCH (21:52)
[2017-11-08] MEDS: METOPROLOL TARTRATE 25 MG TAB PO SCH (21:52)
[2017-11-08 22:27] LABS: TROPONIN I 4.05 NG/ML (0.02-0.05)
[2017-11-08] MEDS ORDERED: HEPARIN SODIUM - IV 10,000 UNITS/10 ML VIAL IV PUSH PRN (23:15)
[2017-11-09] VITALS (7 sets, daily range): BP systolic 104–153; BP diastolic 53–70; PULSE 72–96; RESP 16–19; TEMP 98.5–100.1; O2SAT 93–98
[2017-11-09] MEDS: ACETAMINOPHEN/HYDROcodone 325 MG/7.5 MG TAB PO PRN ×4 (01:34→20:36)
[2017-11-09 04:31] LABS: ALBUMIN 2.5 GM/DL (3.4-5.0); AST (GOT) 27 U/L (15-37); BICARBONATE 26.6 MEQ/L (21.0-32.0); BLOOD UREA NITROGEN 22 MG/DL (7-18); CALCIUM 7.8 MG/DL (8.5-10.1); CHLORIDE 102 MEQ/L (98-107); CREATININE 0.97 MG/DL (0.60-1.30); GLOMERULAR FILTRATION RATE 76 ML/MIN (>89); GLUCOSE,RANDOM 123 MG/DL (74-106); SODIUM (NA) 138 MEQ/L (136-145)
[2017-11-09 04:32] LABS: ALT (GPT) 22 U/L (12-78); CHOLESTEROL 107 MG/DL (120-200); TRIGLYCERIDES 112 MG/DL (42-150)
[2017-11-09 04:34] LABS: ALKALINE PHOSPHATASE 53 U/L (45-117); CHOLESTEROL/ HDL RATIO 2.59 RATIO; HDL CHOLESTEROL 41.3 MG/DL (40.0-60.0); LDL CHOLESTEROL 43 MG/DL (0-99); TOTAL BILIRUBIN ADULT 0.9 MG/DL (0.2-1.0); TOTAL PROTEIN 5.6 GM/DL (6.4-8.2)
[2017-11-09] MEDS: HEPARIN SODIUM - IV 10,000 UNITS/10 ML VIAL IV PUSH PRN ×2 (05:16→14:09)
[2017-11-09] MEDS: BRINZOLAMIDE BRIMONIDINE OPTH EACH EYE SCH ×3 (06:00→20:35)
[2017-11-09] MEDS: LACTATED RINGER'S 1000 ML INJ 1,000 ML IV SCH ×2 (08:30→21:00)
[2017-11-09] MEDS: DOCUSATE SODIUM 100 MG CAP PO SCH ×2 (09:36→20:32)
[2017-11-09] MEDS: METOPROLOL TARTRATE 25 MG TAB PO SCH ×2 (09:36→20:32)
[2017-11-09] MEDS: ASCORBIC ACID 500 MG TAB PO SCH (09:36)
[2017-11-09] MEDS: PANTOPRAZOLE SOD 20 MG DELAYED RELEASE TAB PO SCH (09:36)
[2017-11-09] MEDS: LACTOBACILLUS ACIDOPHILUS TAB PO SCH (09:36)
[2017-11-09] MEDS: FINASTERIDE 5 MG TAB PO SCH (09:36)
[2017-11-09] MEDS: CETIRIZINE HCL 10 MG TAB PO SCH (09:36)
[2017-11-09] MEDS: MULTIVITAMINS/MINERALS THERAPEUTIC TAB PO SCH ×2 (09:36→20:33)
[2017-11-09] MEDS: ASPIRIN EC 81 MG TABEC PO SCH (09:36)
[2017-11-09] MEDS: MAGNESIUM HYDROXIDE SUSP 30 ML CUP PO SCH ×2 (09:36→20:30)
[2017-11-09] MEDS: FLUTICASONE PROPIONATE 50 MCG/ACT 16 GM NASAL SPRAY NASAL SCH ×2 (09:42→20:33)
--- NOTE | 2017-11-09 10:01 | PD.ORT.PN ---
Subjective Subjective Remarks Pt comfortable in bed at present. Objective Vitals Vital Signs Date Time Temp Pulse Resp B/P (MAP) Pulse Ox O2 Delivery O2 Flow Rate FiO2 11/09/17 09:18 100.1 88 16 153/68 (96) 97 11/09/17 03:53 98.6 72 18 104/53 (70) 94 11/08/17 23:53 98.2 71 18 102/57 (72) 94 11/08/17 20:26 99.7 88 18 142/64 (90) 93 11/08/17 16:00 98.0 68 17 108/62 (77) 94 11/08/17 12:00 100.0 95 18 132/62 (85) 95 I/O 11/08/17 11/08/17 11/08/17 11/09/17 11/09/17 11/09/17 07:00 15:00 23:00 07:00 15:00 23:00 Intake Total 480 ml 960 ml 559 ml Output Total 1000 ml 600 ml 150 ml 350 ml Balance -520 ml -600 ml 810 ml 209 ml Intake Oral 480 ml 960 ml 480 ml Other 79 ml Output Urine Total 1000 ml 600 ml 150 ml 350 ml Bladder Scan Volume Amount 348 ml # Bowel Movements 0 0 Result Diagram: 11/08/17 1730 11/09/17 0343 Other Results Laboratory Tests Test 11/08/17 17:30 Prothromb Time International Ratio 1.1 RATIO Prothrombin Time 10.8 SEC (9.8-11.6) Imaging Last 24 hours Impressions Knee X-Ray 11/06/17 1633 Signed Impressions: CONCLUSION: Satisfactory postop appearance Objective Remarks Dressings dry and intact. No calf tenderness. Assessment & Plan Ortho Post Op Day #: 3 Problem List: (1) Status post total bilateral knee replacement ICD Codes: Z96.653 - Presence of artificial knee joint, bilateral Assessment and Plan OOB with PT today. Plan on [facility] today if ok with medical. Knees to be wrapped with aces and teds to help prevent heparin induced hemarthrosis. Chandrakant Trujillo MD Nov 09, 2017 10:01
--- NOTE | 2017-11-09 10:35 | HHI.PR ---
Subjective Remarks Follow-up non-STEMI, status post bilateral knee replacement, proximal A. fib. Patient seen and examined, lying in bed comfortably no apparent distress. Denies any chest pain. Postoperative knee pain adequately controlled with pain regimen. Continued on IV heparin. TMAX 100.1 overnight. Tolerating p.o. intake well. Denies any cough, shortness of breath, abdominal pain, nausea or vomiting. Plan for Lexiscan in a.m. Objective Vitals Vital Signs Date Time Temp Pulse Resp B/P (MAP) Pulse Ox O2 Delivery O2 Flow Rate FiO2 11/09/17 09:18 100.1 88 16 153/68 (96) 97 11/09/17 03:53 98.6 72 18 104/53 (70) 94 11/08/17 23:53 98.2 71 18 102/57 (72) 94 11/08/17 20:26 99.7 88 18 142/64 (90) 93 11/08/17 16:00 98.0 68 17 108/62 (77) 94 11/08/17 12:00 100.0 95 18 132/62 (85) 95 I/O 11/08/17 11/08/17 11/08/17 11/09/17 11/09/17 11/09/17 07:00 15:00 23:00 07:00 15:00 23:00 Intake Total 480 ml 960 ml 559 ml Output Total 1000 ml 600 ml 150 ml 350 ml Balance -520 ml -600 ml 810 ml 209 ml Intake Oral 480 ml 960 ml 480 ml Other 79 ml Output Urine Total 1000 ml 600 ml 150 ml 350 ml Bladder Scan Volume Amount 348 ml # Bowel Movements 0 0 Result Diagram: 11/08/17 1730 11/09/17 0343 Imaging Last Impressions Knee X-Ray 11/06/17 1633 Signed Impressions: CONCLUSION: Satisfactory postop appearance Objective Remarks GENERAL: Well-developed, well-nourished patient in NAD. SKIN: Warm and dry. No rash. HEAD: Normocephalic. Atraumatic. EYES: Pupils equal and round. No scleral icterus. No injection or drainage. ENT: No nasal bleeding or discharge. Mucous membranes pink and moist. NECK: Supple. Trachea midline. CARDIOVASCULAR: Regular rate and rhythm. S1, S2 noted. No murmur appreciated. RESPIRATORY: No accessory muscle use. Clear to auscultation. Breath sounds equal bilaterally. GASTROINTESTINAL: Abdomen soft, non-tender, nondistended. Normoactive bowel sounds x4. MUSCULOSKELETAL: No obvious deformities. Extremities without clubbing, cyanosis. Bilateral knee incisions with Anderson wrap. No drainage, no erythema. Sensation intact. Pedal and DP pulses present. NEUROLOGICAL: Awake and alert. No obvious cranial nerve deficits. Motor grossly within normal limits. 5/5 muscle strength in bilateral upper and lower extremities. Normal speech. PSYCHIATRIC: Appropriate mood and affect; insight and judgment normal. Procedures 11/06/17 -bilateral total knee arthroplasty by Dr. Trujillo A/P Assessment and Plan 72-year-old male with history of BPH, glaucoma, severe osteoarthritis of bilateral knees, admitted to hospital for bilateral total knee arthroplasty done 11/[address] Trujillo. Hospitalist consulted for medical management. Severe osteoarthritis s/p bilateral TKA: Surgery done 11/[address] Trujillo - Continue management per orthopedics - DVT prophylaxis with Eliquis per ortho, has been DC'd. Patient is now on heparin drip. - Continue physical therapy, plan for patient to DC to [facility] when medically stable. - Monitor surgical site for bleeding, on heparin drip. NSTEMI with elevated troponin Atrial fibrillation w RVR, has resolved. - Initially resolved metoprolol. Was started on Cardizem p.o. now stopped and placed on metoprolol 12.5 mg p.o. twice daily. - Patient is now normal sinus rhythm. Cardiac telemetry continued, reviewed showing no acute events overnight. - Cardiology following, appreciate input recommendations. - Patient placed on heparin drip, to undergo cardiac stress test in a.m. - Patient is asymptomatic. Continued on heparin drip for now. Eliquis on hold. Awaiting further medications from cardiology. - Further treatment plan will depend on nuclear imaging results. Pre-Syncope/Lightheadedness suspect secondary to side effects of anesthesia versus pain medications versus orthostatic hypotension - Orthostatic blood pressure dropped from 126 to 104 upon standing - Status post 500ml bolus. Continue gentle hydration. - Hemoglobin stable. Continue to monitor CBC. - Continue cardiac telemetry. BPH, chronic Urinary retention - Continue patient's tamsulosin and finasteride. - Bladder scan not significant. Continue to OUTPUT. GERD, chronic: Continue patient's PPI DVT prophylaxis: SCDs. On heparin drip. Discharge Planning Not clinically ready for discharge. Patient undergo Lexiscan in a.m. Plan for discharge to [facility] when medically stable. Liliana Mallory Nov 09, 2017 10:35
--- NOTE | 2017-11-09 14:05 | PD.CARD.PN ---
Subjective Subjective Remarks No CP or SOB, troponin increased, c/w NSTEMI, stays in SR Objective Medications Current Medications Medications (Trade) Dose Ordered Sig/Orin Route Start Time Stop Time Status Last Admin (Ecotrin Ec) 81 mg DAILY PO 11/07/17 09:00 11/09/17 09:36 (Proscar) 5 mg DAILY PO 11/07/17 09:00 11/09/17 09:36 (Xalatan 0.005% Opth Soln) 1 drop HS EACH EYE 11/06/17 21:00 11/08/17 21:00 (Flomax) 0.4 mg HS PO 11/06/17 21:00 11/08/17 21:52 (Vitamin C) 500 mg DAILY PO 11/07/17 09:00 11/09/17 09:36 Patient Own Medication PT OWN MED: (Brinzolamide-Brimon... Q8HR EACH EYE 11/06/17 22:00 11/09/17 06:00 (ZyrTEC) 10 mg DAILY PO 11/07/17 09:00 11/09/17 09:36 (Flonase Santiago Spr) 1 spray BID NASAL 11/06/17 21:00 11/09/17 09:42 (Protonix) 20 mg DAILY PO 11/07/17 09:00 11/09/17 09:36 (Lactinex) 1 tab DAILY PO 11/07/17 09:00 11/09/17 09:36 Lactated Ringer's 1,000 ml @ 80 mls/hr [id number] IV 11/06/17 18:00 11/06/17 17:30 (Brunswick 7.5-325 Mg) 1 tab Q4H PRN PO 11/06/17 16:45 11/07/17 12:29 (Brunswick 7.5-325 Mg) 2 tab Q4H PRN PO 11/06/17 16:45 11/09/17 09:37 (Tylenol) 650 mg Q6H PRN PO 11/06/17 16:45 (Theragran M Tab) 1 tab BID PO 11/07/17 21:00 01/06/18 20:59 11/09/17 09:36 (Zofran Odt) 4 mg Q6H PRN PO 11/06/17 18:00 (Colace) 100 mg BID PO 11/07/17 21:00 11/09/17 09:36 (Restoril) 15 mg HS PRN PO 11/06/17 16:45 (Bacitracin Oint Packet) 0.9 gm UNSCH X1 PRN TOP 11/08/17 10:15 11/10/17 10:14 (Narcan Inj) 0.4 mg UNSCH PRN IV PUSH 11/06/17 16:45 (Benadryl Inj) 25 mg Q6H PRN IV PUSH 11/06/17 16:45 (Narcan Inj) 0.4 mg UNSCH PRN IV PUSH 11/06/17 16:45 (Dilaudid Pf Inj) 1 mg Q4H PRN IV PUSH 11/06/17 16:45 (Duoneb Neb) 1 ampule Q2HR NEB PRN NEB 11/06/17 19:15 (Miralax) 17 gm HS PO 11/07/17 21:00 11/07/17 20:36 (Milk Of Magnesia Liq) 30 ml BID PO 11/07/17 21:00 11/09/17 09:36 (Lopressor) 12.5 mg Q12HR PO 11/08/17 21:00 11/09/17 09:36 (Heparin Inj) 5,000 units UNSCH PRN IV PUSH 11/08/17 23:15 (Heparin Inj) 2,500 units UNSCH PRN IV PUSH 11/08/17 23:15 11/09/17 05:16 Heparin Sodium/ Dextrose 250 ml @ 10 mls/hr TITRATE PRN IV 11/08/17 17:15 11/08/17 21:38 (Lipitor) 80 mg HS PO 11/08/17 21:00 11/08/17 21:52 Sodium Chloride 1,000 ml @ 42 mls/hr [id number] IV 11/09/17 11:00 Vital Signs / I&O Vital Signs Date Time Temp Pulse Resp B/P (MAP) Pulse Ox O2 Delivery O2 Flow Rate FiO2 11/09/17 12:30 98.5 79 16 116/56 (76) 96 11/09/17 09:18 100.1 88 16 153/68 (96) 97 11/09/17 03:53 98.6 72 18 104/53 (70) 94 11/08/17 23:53 98.2 71 18 102/57 (72) 94 11/08/17 20:26 99.7 88 18 142/64 (90) 93 11/08/17 16:00 98.0 68 17 108/62 (77) 94 I/O 11/08/17 11/08/17 11/08/17 11/09/17 11/09/17 11/09/17 07:00 15:00 23:00 07:00 15:00 23:00 Intake Total 480 ml 960 ml 559 ml Output Total 1000 ml 600 ml 150 ml 350 ml Balance -520 ml -600 ml 810 ml 209 ml Intake Oral 480 ml 960 ml 480 ml Other 79 ml Output Urine Total 1000 ml 600 ml 150 ml 350 ml Bladder Scan Volume Amount 348 ml # Bowel Movements 0 0 Physical Exam GENERAL: In NAD. SKIN: Warm and dry. HEAD: Normocephalic. EYES: No scleral icterus. No injection or drainage. NECK: Supple, trachea midline. No JVD or lymphadenopathy. CARDIOVASCULAR: Regular rate and rhythm without murmurs, gallops, or rubs. RESPIRATORY: Breath sounds equal bilaterally. No accessory muscle use. GASTROINTESTINAL: Abdomen soft, non-tender, nondistended. MUSCULOSKELETAL: No cyanosis, or edema, knees dressed, PT present Laboratory Laboratory Tests Test 11/08/17 15:10 11/08/17 17:30 11/08/17 21:17 11/09/17 00:03 Total Creatine Kinase 353 U/L 399 U/L Creatine Kinase MB 4.6 NG/ML 4.0 NG/ML Creatine Kinase MB % 1.3 % 1.0 % Troponin I 4.81 NG/ML 4.05 NG/ML White Blood Count 10.9 TH/MM3 Red Blood Count 3.45 MIL/MM3 Hemoglobin 10.6 GM/DL Hematocrit 31.3 % Mean Corpuscular Volume 90.6 FL Mean Corpuscular Hemoglobin 30.8 PG Mean Corpuscular Hemoglobin Concent 34.0 % Red Cell Distribution Width 13.5 % Platelet Count 199 TH/MM3 Mean Platelet Volume 8.0 FL Prothrombin Time 10.8 SEC Prothromb Time International Ratio 1.1 RATIO Activated Partial Thromboplast Time 25.9 SEC 41.9 SEC Test 11/09/17 03:43 11/09/17 12:07 Activated Partial Thromboplast Time 30.9 SEC 31.9 SEC Blood Urea Nitrogen 22 MG/DL Creatinine 0.97 MG/DL Random Glucose 123 MG/DL Total Protein 5.6 GM/DL Albumin 2.5 GM/DL Calcium Level 7.8 MG/DL Alkaline Phosphatase 53 U/L Aspartate Amino Transf (AST/SGOT) 27 U/L Alanine Aminotransferase (ALT/SGPT) 22 U/L Total Bilirubin 0.9 MG/DL Sodium Level 138 MEQ/L Potassium Level 3.6 MEQ/L Chloride Level 102 MEQ/L Carbon Dioxide Level 26.6 MEQ/L Anion Gap 9 MEQ/L Estimat Glomerular Filtration Rate 76 ML/MIN Triglycerides Level 112 MG/DL Cholesterol Level 107 MG/DL LDL Cholesterol 43 MG/DL HDL Cholesterol 41.3 MG/DL Cholesterol/HDL Ratio 2.59 RATIO Assessment and Plan Problem List: (1) NSTEMI (non-ST elevated myocardial infarction) ICD Codes: I21.4 - Non-ST elevation (NSTEMI) myocardial infarction (2) Paroxysmal atrial fibrillation ICD Codes: I48.0 - Paroxysmal atrial fibrillation (3) HTN (hypertension) ICD Codes: I10 - Essential (primary) hypertension (4) Status post total bilateral knee replacement ICD Codes: Z96.653 - Presence of artificial knee joint, bilateral Assessment and Plan No angina. Stays in SR. Elevated troponin c/w NSTEMI. Continue IV heparin and ASA, statin and beta melchor. Continue monitoring. Schedule adenosine myocardial perfusion study tomorrow to evaluate for ischemia. Increase activity , continue PT. Plan d/w pt and . Amos Hansen MD Nov 09, 2017 14:05
[2017-11-09] MEDS: SODIUM CHLOR 0.9% 1000 ML INJ 1,000 ML IV SCH (15:59)
[2017-11-09] MEDS: HEPARIN-D5W 25,000 U/250 ML 250 ML IV PRN (16:43)
[2017-11-09] MEDS: POLYETHYLENE GLYCOL 17 GM PKG PO SCH (20:30)
[2017-11-09] MEDS: ATORVASTATIN 80 MG TAB PO SCH (20:32)
[2017-11-09] MEDS: TAMSULOSIN HCL 0.4 MG CAP PO SCH (20:32)
[2017-11-09] MEDS: LATANOPROST 0.005% OPHT SOLN 2.5 ML BTL EACH EYE SCH (20:34)
[2017-11-10] VITALS (8 sets, daily range): BP systolic 112–139; BP diastolic 55–67; PULSE 73–89; RESP 18–19; TEMP 98.2–98.8; O2SAT 94–97
[2017-11-10] MEDS: BRINZOLAMIDE BRIMONIDINE OPTH EACH EYE SCH ×3 (06:00→21:47)
[2017-11-10] MEDS: DOCUSATE SODIUM 100 MG CAP PO SCH ×3 (08:47→21:45)
[2017-11-10] MEDS: LACTOBACILLUS ACIDOPHILUS TAB PO SCH (08:47)
[2017-11-10] MEDS: PANTOPRAZOLE SOD 20 MG DELAYED RELEASE TAB PO SCH (08:48)
[2017-11-10] MEDS: METOPROLOL TARTRATE 25 MG TAB PO SCH ×2 (08:48→21:46)
[2017-11-10] MEDS: ASCORBIC ACID 500 MG TAB PO SCH (08:48)
[2017-11-10] MEDS: MULTIVITAMINS/MINERALS THERAPEUTIC TAB PO SCH ×2 (08:48→21:46)
[2017-11-10] MEDS: CETIRIZINE HCL 10 MG TAB PO SCH (08:48)
[2017-11-10] MEDS: ASPIRIN EC 81 MG TABEC PO SCH (08:48)
[2017-11-10] MEDS: FINASTERIDE 5 MG TAB PO SCH (08:48)
[2017-11-10] MEDS: FLUTICASONE PROPIONATE 50 MCG/ACT 16 GM NASAL SPRAY NASAL SCH ×2 (08:49→21:40)
[2017-11-10] MEDS: MAGNESIUM HYDROXIDE SUSP 30 ML CUP PO SCH ×3 (08:49→21:46)
[2017-11-10] MEDS: ACETAMINOPHEN/HYDROcodone 325 MG/7.5 MG TAB PO PRN ×4 (09:04→21:48)
[2017-11-10] MEDS: LACTATED RINGER'S 1000 ML INJ 1,000 ML IV SCH ×2 (09:30→21:47)
[2017-11-10] MEDS ORDERED: REGADENOSON INJ 0.4 MG/5 ML SYR ONE (10:21)
[2017-11-10] MEDS: SODIUM CHLOR 0.9% 1000 ML INJ 1,000 ML IV SCH (10:49)
--- NOTE | 2017-11-10 11:42 | RADRPT ---
EXAM DATE: 11/10/2017 11:29 AM EDT AGE/SEX: 72 years / Male INDICATIONS:Atrial Fibrillation. . Elevtaed troponin and non-ST elevated myocardial infarction. CLINICAL DATA: This is the patient's initial encounter. Patient reports that signs and symptoms have been present for 1 day and indicates a pain score of 0/10. MEDICAL/SURGICAL HISTORY: Hypertension. Tonsillectomy. Appendectomy. Umbilical hernia repair. Bilateral total knee replacement. COMPARISON: No prior exams available for comparison. DOSE: 10.0 mCi Tc 99m Myoview at rest 31.2 mCi [id number] at stress 0.4 mg Lexiscan STRESS SYMPTOMS: Lightheaded, headache, and clammy. EJECTION FRACTION: 67 % TECHNIQUE: The patient underwent pharmacologic stress with infusion of prescribed dose. Continuous ECG tracing was monitored during stress. Gated SPECT imaging was performed after stress and conventi onal SPECT imaging was performed at rest. The examination was performed on a SPECT/CT scanner, both attenuation and non-corrected datasets were reviewed. FINDINGS: Distribution: The maximum perfused segment at stress is in the lateral wall. Perfusion Study: The pattern of perfusion at stress is within normal limits. Gated Study: There are intact wall motion and wall thickening without hypokinetic or dyskinetic segm ents. The ejection fraction is calculated at 67%. RISK CATEGORY: Low (<1% Annual Motality Rate) CONCLUSION: Negative examination. Electronically signed by: Evangelista Mayorga MD 11/10/2017 11:41 AM EDT
[2017-11-10] MEDS: HEPARIN-D5W 25,000 U/250 ML 250 ML IV PRN (13:44)
--- NOTE | 2017-11-10 13:48 | ECHRPT ---
Indication: A FIB FLUTTER CONCLUSIONS The left ventricular systolic function is normal with an estimated ejection fraction in the range of 55-60%. There is trace tricuspid valve regurgitation. BP: / HR: Rhythm: MEASUREMENTS (Male / Female) Normal Values Technical Quality: 2D ECHO LV Diastolic Diameter PLAX 4.3 cm 4.2 - 5.9 / 3.9 - 5.3 cm LV Systolic Diameter PLAX 3.2 cm IVS Diastolic Thickness 1.0 cm 0.6 - 1.0 / 0.6 - 0.9 cm LVPW Diastolic Thickness 0.7 cm 0.6 - 1.0 / 0.6 - 0.9 cm LV Relative Wall Thickness 0.4 RV Internal Dim ED PLAX 2.2 cm DOPPLER AV Peak Velocity 217.0 cm/s AV Peak Gradient 18.8 mmHg Mitral E Point Velocity 89.8 cm/s Mitral A Point Velocity 85.4 cm/s Mitral E to A Ratio 1.1 TR Peak Velocity 281.0 cm/s TR Peak Gradient 31.6 mmHg Right Atrial Pressure 5.0 mmHg Pulmonary Artery Systolic Pressu 36.6 mmHg Right Ventricular Systolic Press 36.6 mmHg FINDINGS LEFT VENTRICLE Normal left ventricular size. Wall thickness is normal. The left ventricular systolic function is normal with an estimated ejection fraction in the range of 55-60%. No regional wall motion abnormalities are present. RIGHT VENTRICLE Grossly normal LEFT ATRIUM The left atrial size is normal. RIGHT ATRIUM The right atrial size is normal. ATRIAL SEPTUM Normal atrial septal thickness AORTA The aortic root and proximal ascending aorta are normal in size on limited imaging. MITRAL VALVE Structurally normal mitral valve. No mitral valve stenosis or regurgitation. AORTIC VALVE Aortic valve sclerosis is present. No aortic valve regurgitation. No aortic valve stenosis. TRICUSPID VALVE Structurally normal tricuspid valve. No tricuspid valve stenosis. There is trace tricuspid valve regurgitation. PULMONARY VALVE No pulmonary valve regurgitation or stenosis. VESSELS The inferior vena cava is normal in size. PERICARDIUM No pericardial effusion. Kb Bhatti DO (Electronically Signed) Final Date:10 November 2017 13:48
[2017-11-10] MEDS ORDERED: DOCU1CAP39 PO (15:19)
--- NOTE | 2017-11-10 16:40 | PD.CARD.PN ---
Subjective Subjective Remarks No CP or SOB, feels fine Objective Medications Current Medications Medications (Trade) Dose Ordered Sig/Orin Route Start Time Stop Time Status Last Admin (Ecotrin Ec) 81 mg DAILY PO 11/07/17 09:00 11/10/17 08:48 (Proscar) 5 mg DAILY PO 11/07/17 09:00 11/10/17 08:48 (Xalatan 0.005% Opth Soln) 1 drop HS EACH EYE 11/06/17 21:00 11/09/17 20:34 (Flomax) 0.4 mg HS PO 11/06/17 21:00 11/09/17 20:32 (Vitamin C) 500 mg DAILY PO 11/07/17 09:00 11/10/17 08:48 Patient Own Medication PT OWN MED: (Brinzolamide-Brimon... Q8HR EACH EYE 11/06/17 22:00 11/10/17 06:00 (ZyrTEC) 10 mg DAILY PO 11/07/17 09:00 11/10/17 08:48 (Flonase Santiago Spr) 1 spray BID NASAL 11/06/17 21:00 11/10/17 08:49 (Protonix) 20 mg DAILY PO 11/07/17 09:00 11/10/17 08:48 (Lactinex) 1 tab DAILY PO 11/07/17 09:00 11/10/17 08:47 Lactated Ringer's 1,000 ml @ 80 mls/hr [id number] IV 11/06/17 18:00 11/09/17 21:00 ([place] 7.5-325 Mg) 1 tab Q4H PRN PO 11/06/17 16:45 11/09/17 20:36 ([place] 7.5-325 Mg) 2 tab Q4H PRN PO 11/06/17 16:45 11/10/17 13:38 (Tylenol) 650 mg Q6H PRN PO 11/06/17 16:45 (Theragran M Tab) 1 tab BID PO 11/07/17 21:00 01/06/18 20:59 11/10/17 08:48 (Zofran Odt) 4 mg Q6H PRN PO 11/06/17 18:00 (Colace) 100 mg BID PO 11/07/17 21:00 11/09/17 20:32 (Restoril) 15 mg HS PRN PO 11/06/17 16:45 (Narcan Inj) 0.4 mg UNSCH PRN IV PUSH 11/06/17 16:45 (Benadryl Inj) 25 mg Q6H PRN IV PUSH 11/06/17 16:45 (Narcan Inj) 0.4 mg UNSCH PRN IV PUSH 11/06/17 16:45 (Dilaudid Pf Inj) 1 mg Q4H PRN IV PUSH 11/06/17 16:45 (Duoneb Neb) 1 ampule Q2HR NEB PRN NEB 11/06/17 19:15 (Miralax) 17 gm HS PO 11/07/17 21:00 11/09/17 20:30 (Milk Of Magnesia Liq) 30 ml BID PO 11/07/17 21:00 11/09/17 20:30 (Lopressor) 12.5 mg Q12HR PO 11/08/17 21:00 11/10/17 08:48 (Heparin Inj) 5,000 units UNSCH PRN IV PUSH 11/08/17 23:15 (Heparin Inj) 2,500 units UNSCH PRN IV PUSH 11/08/17 23:15 11/09/17 14:09 Heparin Sodium/ Dextrose 250 ml @ 10 mls/hr TITRATE PRN IV 11/08/17 17:15 11/10/17 13:44 (Lipitor) 80 mg HS PO 11/08/17 21:00 11/09/17 20:32 Sodium Chloride 1,000 ml @ 42 mls/hr [id number] IV 11/09/17 11:00 11/10/17 10:49 Vital Signs / I&O Vital Signs Date Time Temp Pulse Resp B/P (MAP) Pulse Ox O2 Delivery O2 Flow Rate FiO2 11/10/17 12:00 98.4 75 18 139/63 (88) 96 11/10/17 08:00 98.7 82 18 139/67 (91) 94 11/10/17 07:15 89 11/10/17 03:52 80 11/10/17 03:27 98.8 82 18 135/64 (87) 94 11/10/17 00:01 73 11/09/17 23:00 99.1 78 18 125/59 (81) 96 11/09/17 19:58 96 11/09/17 19:10 99.5 92 19 151/70 (97) 98 11/09/17 17:21 99.8 77 16 137/63 (87) 93 I/O 11/09/17 11/09/17 11/09/17 11/10/17 11/10/17 11/10/17 07:00 15:00 23:00 07:00 15:00 23:00 Intake Total 559 ml 850 ml 360 ml Output Total 350 ml 325 ml 800 ml Balance 209 ml 850 ml 35 ml -800 ml Intake Oral 480 ml 850 ml 360 ml Other 79 ml Output Urine Total 350 ml 325 ml 800 ml Bladder Scan Volume Amount 658 ml 658 ml # Voids 5 1 # Bowel Movements 0 2 Physical Exam GENERAL: In NAD. SKIN: Warm and dry. HEAD: Normocephalic. EYES: No scleral icterus. No injection or drainage. NECK: Supple, trachea midline. No JVD or lymphadenopathy. CARDIOVASCULAR: Regular rate and rhythm without murmurs, gallops, or rubs. RESPIRATORY: Breath sounds equal bilaterally. No accessory muscle use. GASTROINTESTINAL: Abdomen soft, non-tender, nondistended. MUSCULOSKELETAL: No cyanosis, or edema, knees dressed Laboratory Laboratory Tests Test 11/09/17 20:19 11/10/17 05:05 11/10/17 12:34 Activated Partial Thromboplast Time 34.3 SEC 34.1 SEC 28.1 SEC Imaging Last 24 hours Impressions Myocardial Perfusion Scan Nuc Med 11/10/17 0800 Signed Impressions: CONCLUSION: Negative examination. Assessment and Plan Problem List: (1) Paroxysmal atrial fibrillation ICD Codes: I48.0 - Paroxysmal atrial fibrillation (2) HTN (hypertension) ICD Codes: I10 - Essential (primary) hypertension (3) Status post total bilateral knee replacement ICD Codes: Z96.653 - Presence of artificial knee joint, bilateral Assessment and Plan No angina. Stays in SR. Elevated troponin related to AF w RVR, nuclear stress test normal. DC heparin, start Eliquis 5 mg BID, DC ASA, continue beta melchor and lower dose atorvastatin. Transfer to [facility] as planned. D/w pt and . Amos Hansen MD Nov 10, 2017 16:40
--- NOTE | 2017-11-10 17:22 | HHI.PR ---
Subjective Remarks Urinary obstruction is present and a Pizarro catheter was placed in regards to this. Workup for elevated troponins is negative. Lexiscan is negative. Echocardiogram shows no evidence of acute congestive heart failure. Objective Vital Signs Date Time Temp Pulse Resp B/P (MAP) Pulse Ox O2 Delivery O2 Flow Rate FiO2 11/10/17 12:00 98.4 75 18 139/63 (88) 96 11/10/17 08:00 98.7 82 18 139/67 (91) 94 11/10/17 07:15 89 11/10/17 03:52 80 11/10/17 03:27 98.8 82 18 135/64 (87) 94 11/10/17 00:01 73 11/09/17 23:00 99.1 78 18 125/59 (81) 96 11/09/17 19:58 96 11/09/17 19:10 99.5 92 19 151/70 (97) 98 11/09/17 17:21 99.8 77 16 137/63 (87) 93 I/O 11/09/17 11/09/17 11/09/17 11/10/17 11/10/17 11/10/17 07:00 15:00 23:00 07:00 15:00 23:00 Intake Total 559 ml 850 ml 360 ml Output Total 350 ml 325 ml 800 ml Balance 209 ml 850 ml 35 ml -800 ml Intake Oral 480 ml 850 ml 360 ml Other 79 ml Output Urine Total 350 ml 325 ml 800 ml Bladder Scan Volume Amount 658 ml 658 ml # Voids 5 1 # Bowel Movements 0 2 Result Diagram: 11/08/17 1730 11/09/17 0343 Objective Remarks GENERAL: NAD, A&Ox3 HEAD: Normocephalic. NECK: Supple, trachea midline. No lymphadenopathy. EYES: No scleral icterus. No injection or drainage. CARDIOVASCULAR: Regular rate and rhythm without murmurs, gallops, or rubs. RESPIRATORY: Breath sounds equal bilaterally. No accessory muscle use. GASTROINTESTINAL: Abdomen soft, non-tender, nondistended. MUSCULOSKELETAL: No cyanosis, or edema. Bilateral lower extremities are bandaged. SKIN: Warm and dry. NEURO: No focal neurological deficitis. A/P Problem List: (1) Osteoarthritis of knees, bilateral ICD Code: M17.0 - Bilateral primary osteoarthritis of knee (2) Anxiety ICD Code: F41.9 - Anxiety disorder, unspecified Status: Chronic (3) Sleep apnea ICD Code: G47.30 - Sleep apnea, unspecified (4) Impaired mobility and activities of daily living ICD Code: Z74.09 - Other reduced mobility Status: Acute Assessment and Plan 72-year-old male admitted to hospital for bilateral total knee arthroplasty done 11/[address] Trujillo. Hospitalist consulted for medical management. Severe osteoarthritis s/p bilateral TKA Status post bilateral arthroplasty Doing well Patient will need rehab at discharge Orthopedic surgeons following Elevated troponin A. fib RVR A. fib has resolved Troponin elevation does not correlate with any evidence of myocardial infarction based on the stress test in echocardiogram Cardiology following Pre-Syncope May be related to recurrent A. fib Patient will be on Eliquis for treatment of his lower extremity surgeries He is recommended to drink less coffee, he has been drinking 5-10 cups of coffee a day as an outpatient Orthostatic blood pressure precautions discussed BPH Acute Urinary Obstruction Indwelling Pizarro catheter now present, inserted 11/10/17 Follow-up with urology as an outpatient Gastroesophageal reflux disease Continue PPI DVT prophylaxis Anticoagulation with Eliquis Discharge Planning Medically cleared for discharge to [facility] Cristian Williamson MD Nov 10, 2017 17:22
[2017-11-10] MEDS ORDERED: ATORVASTATIN 20 MG TAB PO SCH (21:00)
[2017-11-10] MEDS: LATANOPROST 0.005% OPHT SOLN 2.5 ML BTL EACH EYE SCH (21:40)
[2017-11-10] MEDS: APIXABAN 5 MG TABLET PO SCH (21:46)
[2017-11-10] MEDS: POLYETHYLENE GLYCOL 17 GM PKG PO SCH (21:46)
[2017-11-10] MEDS: TAMSULOSIN HCL 0.4 MG CAP PO SCH (21:46)
[2017-11-11 00:01] VITALS: BP 133/63; PULSE 85; RESP 18; TEMP 99.9; O2SAT 95
[2017-11-11] MEDS: ACETAMINOPHEN/HYDROcodone 325 MG/7.5 MG TAB PO PRN ×2 (01:47→09:05)
[2017-11-11 04:00] VITALS: BP 117/57; PULSE 71; RESP 17; TEMP 98.2; O2SAT 97
[2017-11-11 06:18] LABS: AUTOMATED NEUTROPHIL # 5.7 TH/MM3 (1.8-7.7); BASOPHIL % 0.6 % (0.0-2.0); EOSINOPHIL # 0.6 TH/MM3 (0-0.4); EOSINOPHIL % 6.5 % (0.0-4.0); HEMATOCRIT 26.1 % (39.0-51.0); LYMPH % 16.1 % (9.0-44.0); LYMPHOCYTE # 1.4 TH/MM3 (1.0-4.8); MEAN CELL VOLUME 90.4 FL (80.0-100.0); MEAN CORPUSCULAR HEMOGLOBIN 31.1 PG (27.0-34.0); MEAN CORPUSCULAR HGB CONC 34.4 % (32.0-36.0); MONO % 10.9 % (0.0-8.0); MONOCYTE # 0.9 TH/MM3 (0-0.9); NEUT % 65.9 % (16.0-70.0); PLATELET COUNT 219 TH/MM3 (150-450); RED BLOOD COUNT 2.88 MIL/MM3 (4.50-5.90); RED CELL DISTRIBUTION WIDTH 13.4 % (11.6-17.2); WHITE BLOOD COUNT 8.6 TH/MM3 (4.0-11.0)
[2017-11-11] MEDS: BRINZOLAMIDE BRIMONIDINE OPTH EACH EYE SCH (06:46)
[2017-11-11 06:47] LABS: ALBUMIN 2.3 GM/DL (3.4-5.0); AST (GOT) 30 U/L (15-37); BICARBONATE 28.6 MEQ/L (21.0-32.0); BLOOD UREA NITROGEN 23 MG/DL (7-18); CALCIUM 7.8 MG/DL (8.5-10.1); CHLORIDE 101 MEQ/L (98-107); CREATININE 1.06 MG/DL (0.60-1.30); GLOMERULAR FILTRATION RATE 68 ML/MIN (>89); GLUCOSE,RANDOM 110 MG/DL (74-106); SODIUM (NA) 139 MEQ/L (136-145)
[2017-11-11 06:48] LABS: ALT (GPT) 27 U/L (12-78)
[2017-11-11 06:52] LABS: ALKALINE PHOSPHATASE 85 U/L (45-117); TOTAL PROTEIN 5.8 GM/DL (6.4-8.2)
[2017-11-11 08:00] VITALS: BP 176/81; PULSE 66; RESP 20; TEMP 97.8; O2SAT 97
[2017-11-11 08:28] LABS: TROPONIN I 0.63 NG/ML (0.02-0.05)
[2017-11-11] MEDS: FLUTICASONE PROPIONATE 50 MCG/ACT 16 GM NASAL SPRAY NASAL SCH (09:00)
[2017-11-11] MEDS: DOCUSATE SODIUM 100 MG CAP PO SCH (09:04)
[2017-11-11] MEDS: ASCORBIC ACID 500 MG TAB PO SCH (09:04)
[2017-11-11] MEDS: FINASTERIDE 5 MG TAB PO SCH (09:05)
[2017-11-11] MEDS: CETIRIZINE HCL 10 MG TAB PO SCH (09:05)
[2017-11-11] MEDS: APIXABAN 5 MG TABLET PO SCH (09:05)
[2017-11-11] MEDS: MULTIVITAMINS/MINERALS THERAPEUTIC TAB PO SCH (09:05)
[2017-11-11] MEDS: MAGNESIUM HYDROXIDE SUSP 30 ML CUP PO SCH (09:06)
[2017-11-11] MEDS: METOPROLOL TARTRATE 25 MG TAB PO SCH (09:06)
[2017-11-11] MEDS: PANTOPRAZOLE SOD 20 MG DELAYED RELEASE TAB PO SCH (09:06)
[2017-11-11] MEDS: LACTOBACILLUS ACIDOPHILUS TAB PO SCH (09:06)
--- NOTE | 2017-11-11 09:57 | PD.ORT.PN ---
Subjective Subjective Remarks Patient seen for Dr. Trujillo today. Up in chair and just finished physical therapy. He has apparently been cleared to transfer to [facility] today Range of Motion Last Impressions Myocardial Perfusion Scan Nuc Med 11/10/17 0800 Signed Impressions: CONCLUSION: Negative examination. Knee X-Ray 11/06/17 1633 Signed Impressions: CONCLUSION: Satisfactory postop appearance Objective Vitals Vital Signs Date Time Temp Pulse Resp B/P (MAP) Pulse Ox O2 Delivery O2 Flow Rate FiO2 11/11/17 08:00 97.8 66 20 176/81 (112) 97 11/11/17 04:00 98.2 71 17 117/57 (77) 97 11/11/17 00:01 99.9 85 18 133/63 (86) 95 11/10/17 20:00 98.8 83 19 112/55 (74) 97 11/10/17 16:00 98.2 81 18 133/61 (85) 96 11/10/17 12:00 98.4 75 18 139/63 (88) 96 I/O 11/10/17 11/10/17 11/10/17 11/11/17 11/11/17 11/11/17 07:00 15:00 23:00 07:00 15:00 23:00 Intake Total 360 ml 240 ml 600 ml 120 ml Output Total 325 ml 800 ml 1025 ml 1000 ml Balance 35 ml -800 ml -785 ml -400 ml 120 ml Intake Oral 360 ml 240 ml 600 ml 120 ml Output Urine Total 325 ml 800 ml 1025 ml 1000 ml Bladder Scan Volume Amount 658 ml 658 ml # Voids 1 # Bowel Movements 2 Result Diagram: 11/11/17 0603 11/11/17 0603 Imaging Last 24 hours Impressions Knee X-Ray 11/06/17 163 Signed Impressions: CONCLUSION: Satisfactory postop appearance Objective Remarks Dressings dry and intact. No calf tenderness. Assessment & Plan Problem List: (1) Status post total bilateral knee replacement ICD Codes: Z96.653 - Presence of artificial knee joint, bilateral Status: Acute Assessment and Plan OOB with PT today. Plan on [facility] today if ok with medical. Knees to be wrapped with aces and teds to help prevent heparin induced hemarthrosis. Juwan Cook MD Nov 11, 2017 09:57
== END 2017-11-11 11:27 | DRG 462 ==
LOC: HSDI 10:49 → EDUNIT# 13:30 → N06B 18:41
PROVIDERS: ADMIT Surgery; ATTEND Surgery
PROC: 0SRD0J9 Replacement of Left Knee Joint with Synthetic Substitute, Cemented, Open Approach (ICD-10-PCS; 2017-11-06)
PROC: 3E0T3BZ Introduction of Anesthetic Agent into Peripheral Nerves and Plexi, Percutaneous Approach (ICD-10-PCS; 2017-11-06)
PROC: 3E0T3BZ Introduction of Anesthetic Agent into Peripheral Nerves and Plexi, Percutaneous Approach (ICD-10-PCS; 2017-11-06)
PROC: 0SRC0J9 Replacement of Right Knee Joint with Synthetic Substitute, Cemented, Open Approach (ICD-10-PCS; principal; 2017-11-06 12:18)
PROC: 0T9B70Z Drainage of Bladder with Drainage Device, Via Natural or Artificial Opening (ICD-10-PCS; 2017-11-10)
DX: M17.0 Bilateral primary osteoarthritis of knee (principal); I48.0 Paroxysmal atrial fibrillation; I10 Essential (primary) hypertension; F41.9 Anxiety disorder, unspecified; G47.30 Sleep apnea, unspecified; R55 Syncope and collapse; M54.30 Sciatica, unspecified side; M21.162 Varus deformity, not elsewhere classified, left knee; M21.161 Varus deformity, not elsewhere classified, right knee; Z79.01 Long term (current) use of anticoagulants; Z82.49 Family history of ischemic heart disease and other diseases of the circulatory system; H40.9 Unspecified glaucoma; N40.1 Benign prostatic hyperplasia with lower urinary tract symptoms; R33.8 Other retention of urine; R42 Dizziness and giddiness; K21.9 Gastro-esophageal reflux disease without esophagitis; R74.8 Abnormal levels of other serum enzymes
CPT/HCPCS: 73560; 76937; 78452; 80048; 80053; 80061; 81001; 82550; 82552; 83735; 84484; 85014; 85018; 85025; 85027; 85610; 85730; 86850; 86900; 86901; 93005; 93017; 93306; 94150; A9502; C1776; C9290; J0131; J0690; J1100; J1644; J2250; J2270; J2405; J2785; J3010; J3370; J7030; J7040; J7120; J8501; L1830

== ENCOUNTER 2018-03-30 17:37 | Observation (INO) ==
[2018-03-30] MEDS: Sod Chloride 0.9% Inj 1,000 ML IV.CONT SCH (18:45)
[2018-03-30 18:58] LABS: Baso % (Auto) 0.3 % (0.0-2.0); Eos # (Auto) 0.1 th/mm3 (0.0-0.4); Eos % (Auto) 0.6 % (0.0-4.0); Hematocrit 37.8 % (39.0-51.0); Lymph % (Auto) 17.4 % (9.0-44.0); Mean Corpuscular HGB Conc 34.5 % (32.0-36.0); Mean Corpuscular Hemoglobin 29.7 pg (27.0-34.0); Mean Corpuscular Volume 86.1 fL (80.0-100.0); Mean Platelet Volume 8.2 fL (7.0-11.0); Mono # (Auto) 1.1 th/mm3 (0.0-0.9); Mono % (Auto) 8.9 % (0.0-8.0); Neut # (Auto) 8.6 th/mm3 (1.8-7.7); Neut % (Auto) 72.8 % (16.0-70.0); Platelet Count 231 th/mm3 (150-450); Red Blood Count 4.39 mil/mm3 (4.50-5.90); Red Cell Distribution Width 14.8 % (11.6-17.2); White Blood Count 11.8 th/mm3 (4.0-11.0)
--- NOTE | 2018-03-30 19:18 | CT ---
EXAM DATE: 03/30/2018 7:13 PM EDT AGE/SEX: 72 years / Male INDICATIONS: Blurry vision after recent heart ablation. CLINICAL DATA: This is the patient's initial encounter. Patient reports that signs and symptoms have been present for 2 days and indicates a pain score of 2/10. MEDICAL/SURGICAL HISTORY: Myocardial infarction. Gastroesophageal reflux disease. AFIB . Cardiac ablation. RADIATION DOSE: 41.85 CTDI (mGy) COMPARISON: No prior exams available for comparison. TECHNIQUE: CT of the head without contrast. Using automated exposure control and adjustment of the mA and/or kV according to patient size, radiation dose was kept as low as reasonably achievable to ob tain optimal diagnostic quality images. DICOM format image data is available electronically for revi ew and comparison. FINDINGS: Cerebrum: Mild diffuse cerebral atrophy. The ventricles are normal for degree of atrophy. No evidenc e of midline shift, mass lesion, hemorrhage or acute infarction. No extraaxial fluid collections are seen. Posterior Fossa: The cerebellum and brainstem are intact. The 4th ventricle is midline. The cerebe llopontine angle is unremarkable. Extracranial: The visualized portion of the orbits is intact. Bilateral maxillary sinus and diffuse ethmoid and frontal sinus mucoperiosteal thickening. Skull: The calvaria is intact. No evidence of skull fracture. CONCLUSION: 1. Paranasal sinus mucosal disease. 2. Senescent changes without acute intracranial abnormality. . Electronically signed by: Naveed Jimenez MD 03/30/2018 7:17 PM EDT
--- NOTE | 2018-03-30 19:26 | ED ---
HPI General Chief complaint: Eye Problems Stated complaint: eye/poss stroke Time Seen by Provider: 03/30/18 18:03 History of Present Illness HPI Narrative: This is a 72-year-old male with a history of atrial fibrillation , who is status post heart ablation 2 days ago and discharged from [facility] this morning. The patient presents today with ocular complaints. He states that after discharge, he started having visual changes and blurry vision. He states he was seen at the [facility] today and evaluated by Dr. Dietz, cigarette maker. He states that she did a exam and found his ocular pressures to be elevated but was concerned that he was having ocular TIAs. He reports that she sent him here for carotid ultrasound and TIA workup. The patient was on Eliquis however stopped it 2 days prior to his procedure. He was restarted back on his Eliquis last evening. There were no other symptoms. Related Data Home Medications Medication Instructions Recorded Confirmed apixaban [Eliquis] 5 mg PO BID 03/30/18 03/30/18 atorvastatin [Lipitor] 20 mg PO HS 03/30/18 03/30/18 brinzolamide-brimonidine 1 drp EACH EYE BID 03/30/18 03/30/18 [Simbrinza] finasteride 5 mg PO DAILY 03/30/18 03/30/18 latanoprost 1 drp EACH EYE QPM 03/30/18 03/30/18 metoprolol tartrate 25 mg PO BID 03/30/18 03/30/18 netarsudil [Rhopressa] 1 drp EACH EYE QPM 03/30/18 03/30/18 omeprazole 20 mg PO DAILY 03/30/18 03/30/18 tamsulosin 0.4 mg PO DAILY 03/30/18 03/30/18 Allergies Allergy/AdvReac Type Severity Reaction Status Date / Time No Known Allergies Allergy Unverified 11/11/17 16:46 Review of Systems ROS: all other systems reviewed are negative Constitutional Reports system reviewed and no additional complaints, except as docu Eyes Reports blurry vision (As per HPI) and Reports change in vision ENT Reports system reviewed and no additional complaints, except as docu Cardiovascular Denies chest pain, Reports irregular heart rhythm (History of A. fib), Denies lightheadedness and Denies dyspnea Respiratory Denies pain on inspiration and Denies dyspnea Gastrointestinal Reports system reviewed and no additional complaints, except as docu Genitourinary Reports system reviewed and no additional complaints, [facility] Musculoskeletal Reports system reviewed and no additional complaints, except as [facility] Neurologic Denies dizziness, Denies headache(s) and Reports other visual disturbances PMF Family History Family History Mother Heart problem Father Heart problem Social History Social History Substance History: No History of Abuse Second Hand Smoke Exposure: No Smoking Status: Never smoker Tobacco Type: Cigarettes How Often Do You Have a Drink Containing Alcohol: Never Recent Travel in [facility] within the Last 8 Weeks: No Recent Out of Country Travel within the Last 8 Weeks: No Immunization History Tetanus Immunization: Unsure Exam Narrative Exam Narrative: GENERAL: Well-developed well-nourished male in no acute respiratory distress. SKIN: Focused skin assessment warm/dry. HEAD: Atraumatic. Normocephalic. EYES: Extraocular muscles were intact. No scleral icterus. No injection or drainage. ENT: No nasal bleeding or discharge. Mucous membranes pink and moist. NECK: Trachea midline. No JVD. Supple. CARDIOVASCULAR: Rate in the 80s.. No murmur appreciated. RESPIRATORY: No accessory muscle use. Clear to auscultation. Breath sounds equal bilaterally. GASTROINTESTINAL: Abdomen soft, non-tender, nondistended. Hepatic and splenic margins not palpable. MUSCULOSKELETAL: No obvious deformities. No clubbing. No cyanosis. No edema. NEUROLOGICAL: Awake and alert. No obvious cranial nerve deficits. Motor grossly within normal limits. Normal speech. Course Initial Documented Vital Signs Temperature 98.9 F 03/30/18 17:48 Pulse Rate 75 03/30/18 17:48 Respiratory Rate 16 03/30/18 17:48 Blood Pressure 148/72 H 03/30/18 17:48 Pulse Oximetry 97 03/30/18 17:48 Last Documented Vital Signs Temperature 98.1 F 04/01/18 16:00 Pulse Rate 64 04/01/18 16:00 Respiratory Rate 16 04/01/18 16:00 Blood Pressure 133/69 04/01/18 16:00 Pulse Oximetry 97 04/01/18 16:00 Sign Out Sign Out Data: Patient Sign Out occurred on 03/30/18 at 19:44. Patient's care was discussed, and care was transferred from Cornel Corado MD to Vinh Soto. Sign Out Comment: 72-year-old male history of A. fib, sent from cigarette maker office for evaluation for ocular TIAs. Patient has MRI and CT pending at this time. The patient has been signed out to Dr. Soto, physician replaced me at change of shift. Disposition will be per Dr. Mccollum. Anticipate the patient will need to be admitted for carotid ultrasounds and possible 2D cardiac echo in the a.m. Last updated by Cornel Corado MD at 03/30/18 19:27 Post-Handoff Eval: 72-year-old male came to the emergency room after he was recommended by his cigarette maker to be checked out for TIA. Patient had symptoms of headache followed by visual disturbance that was transient. Patient has never had headache or the skin of visual disturbances in the past. He does have history of A. fib and is on Eliquis. He had his Eliquis held for 48 hours and resumed last night for a cardiac ablation procedure that was done in [facility]. Patient was discharged from the hospital this morning. Currently he remains asymptomatic and hemodynamically stable. He was signed off to me by the previous physician Dr. Corado to follow-up on the workup and eventually admit for observation. Blood test and CAT scan are within normal limit. I discussed the case with Dr. Paz from the hospitalist service was accepted the patient. I explained the test results and answered all the questions asked by the patient and the family to the best of my ability. They understand the plan. Medical Decision Making MDM Narrative Medical decision making narrative: 72-year-old male history of A. fib status post ablation, presents with visual disturbances that have resolved. Patient was sent here by an cigarette maker for evaluation for ocular TIAs. The patient has a CT and MRI that are pending at this. Labs are pending at this time. Patient signed out to Dr. Mccollum, physician replacing me at change of shift. Disposition will be per Dr. Soto. Medical Screen Exam Complete: Yes Emergency Medical Condition: Yes Differential Diagnosis Differential Diagnosis: Amaurosis fugax versus ocular migraine versus symptomatic glaucoma Lab Data Result diagrams: 03/30/18 18:34 03/30/18 18:34 Lab Results 03/30/18 03/30/18 03/30/18 Range/Units 18:34 18:34 18:34 WBC 11.8 H (4.0-11.0) th/mm3 RBC 4.39 L (4.50-5.90) mil/mm3 Hgb 13.0 (13.0-17.0) gm/dL Hct 37.8 L (39.0-51.0) % MCV 86.1 (80.0-100.0) fL MCH 29.7 (27.0-34.0) pg MCHC 34.5 (32.0-36.0) % RDW 14.8 (11.6-17.2) % Plt Count 231 (150-450) th/mm3 MPV 8.2 (7.0-11.0) fL Neut % (Auto) 72.8 H (16.0-70.0) % Lymph % (Auto) 17.4 (9.0-44.0) % Todd % (Auto) 8.9 H (0.0-8.0) % Eos % (Auto) 0.6 (0.0-4.0) % Baso % (Auto) 0.3 (0.0-2.0) % Neut # (Auto) 8.6 H (1.8-7.7) th/mm3 Lymph # (Auto) 2.0 (1.0-4.8) th/mm3 Todd # (Auto) 1.1 H (0.0-0.9) th/mm3 Eos # (Auto) 0.1 (0.0-0.4) th/mm3 Baso # (Auto) 0.0 (0.0-0.2) th/mm3 WBC Differential . Differential Comment Auto diff final ESR (0-20) mm/hr PT (9.8-11.6) sec INR Ratio APTT (24.3-30.1) sec Sodium 137 (136-145) meq/L Potassium 3.7 (3.5-5.1) meq/L Chloride 102 (98-107) meq/L Carbon Dioxide 26.2 (21.0-32.0) meq/L Anion Gap 9 (5-15) meq/L BUN 22 H (7-18) mg/dL Creatinine 1.25 (0.60-1.30) mg/dL Estimated GFR 57 L (>89) mL/min POC Glucose (68-110) mg/dl Random Glucose 115 H (74-106) mg/dL Calcium 8.6 (8.5-10.1) mg/dL Total Bilirubin 0.5 (0.2-1.0) mg/dL AST 15 (15-37) U/L ALT 20 (12-78) U/L Alkaline Phosphatase 82 (45-117) U/L Troponin I (0.02-0.05) ng/mL Total Protein 6.9 (6.4-8.2) g/dL Albumin 3.5 (3.4-5.0) g/dL Vitamin B12 (193-986) pg/mL TSH (0.358-3.740) uIU/mL Blood Type A Negative Antibody Screen Negative 03/30/18 03/30/18 03/31/18 Range/Units 18:34 20:17 16:18 WBC (4.0-11.0) th/mm3 RBC (4.50-5.90) mil/mm3 Hgb (13.0-17.0) gm/dL Hct (39.0-51.0) % MCV (80.0-100.0) fL MCH (27.0-34.0) pg MCHC (32.0-36.0) % RDW (11.6-17.2) % Plt Count (150-450) th/mm3 MPV (7.0-11.0) fL Neut % (Auto) (16.0-70.0) % Lymph % (Auto) (9.0-44.0) % Todd % (Auto) (0.0-8.0) % Eos % (Auto) (0.0-4.0) % Baso % (Auto) (0.0-2.0) % Neut # (Auto) (1.8-7.7) th/mm3 Lymph # (Auto) (1.0-4.8) th/mm3 Todd # (Auto) (0.0-0.9) th/mm3 Eos # (Auto) (0.0-0.4) th/mm3 Baso # (Auto) (0.0-0.2) th/mm3 WBC Differential Differential Comment ESR 7 (0-20) mm/hr PT 11.4 (9.8-11.6) sec INR 1.1 Ratio APTT 25.4 (24.3-30.1) sec Sodium (136-145) meq/L Potassium (3.5-5.1) meq/L Chloride (98-107) meq/L Carbon Dioxide (21.0-32.0) meq/L Anion Gap (5-15) meq/L BUN (7-18) mg/dL Creatinine (0.60-1.30) mg/dL Estimated GFR (>89) mL/min POC Glucose (68-110) mg/dl Random Glucose (74-106) mg/dL Calcium (8.5-10.1) mg/dL Total Bilirubin (0.2-1.0) mg/dL AST (15-37) U/L ALT (12-78) U/L Alkaline Phosphatase (45-117) U/L Troponin I (0.02-0.05) ng/mL Total Protein (6.4-8.2) g/dL Albumin (3.4-5.0) g/dL Vitamin B12 407 (193-986) pg/mL TSH 0.965 (0.358-3.740) uIU/mL Blood Type Antibody Screen 04/01/18 04/01/18 Range/Units 11:51 13:38 WBC (4.0-11.0) th/mm3 RBC (4.50-5.90) mil/mm3 Hgb (13.0-17.0) gm/dL Hct (39.0-51.0) % MCV (80.0-100.0) fL MCH (27.0-34.0) pg MCHC (32.0-36.0) % RDW (11.6-17.2) % Plt Count (150-450) th/mm3 MPV (7.0-11.0) fL Neut % (Auto) (16.0-70.0) % Lymph % (Auto) (9.0-44.0) % Todd % (Auto) (0.0-8.0) % Eos % (Auto) (0.0-4.0) % Baso % (Auto) (0.0-2.0) % Neut # (Auto) (1.8-7.7) th/mm3 Lymph # (Auto) (1.0-4.8) th/mm3 Todd # (Auto) (0.0-0.9) th/mm3 Eos # (Auto) (0.0-0.4) th/mm3 Baso # (Auto) (0.0-0.2) th/mm3 WBC Differential Differential Comment ESR (0-20) mm/hr PT (9.8-11.6) sec INR Ratio APTT (24.3-30.1) sec Sodium (136-145) meq/L Potassium (3.5-5.1) meq/L Chloride (98-107) meq/L Carbon Dioxide (21.0-32.0) meq/L Anion Gap (5-15) meq/L BUN (7-18) mg/dL Creatinine (0.60-1.30) mg/dL Estimated GFR (>89) mL/min POC Glucose 94 (68-110) mg/dl Random Glucose (74-106) mg/dL Calcium (8.5-10.1) mg/dL Total Bilirubin (0.2-1.0) mg/dL AST (15-37) U/L ALT (12-78) U/L Alkaline Phosphatase (45-117) U/L Troponin I 0.17 H (0.02-0.05) ng/mL Total Protein (6.4-8.2) g/dL Albumin (3.4-5.0) g/dL Vitamin B12 (193-986) pg/mL TSH (0.358-3.740) uIU/mL Blood Type Antibody Screen Imaging Data Radiologist's impression: Head MRI 03/30/18 18:16 CONCLUSION: 1. Senescent changes with remote small right basal ganglia lacunar infarct. 2. No acute intracranial abnormality. Specifically, no evidence for acute infarction, mass or hemorrhage. Head CT 03/30/18 18:17 CONCLUSION: 1. Paranasal sinus mucosal disease. 2. Senescent changes without acute intracranial abnormality. . Carotid Doppler Study 03/31/18 00:00 CONCLUSION: 1. Right Internal Carotid Artery: Findings indicate <50% stenosis. 2. Left Internal Carotid Artery: Findings indicate <50% stenosis. Neck MRA 03/31/18 00:00 CONCLUSION: 1. Negative MRA Carotids. Percent stenosis is calculated using the diameter of the stenotic region over the diameter of the normal distal internal carotid artery Head MRA 03/31/18 13:32 CONCLUSION: 1. Negative MRA [place] ([place]) non contrast. Discharge Plan Discharge Disposition Patient Disposition: 01 Discharge Home Discharge Condition Condition: Stable Discharge Order Discharge Orders: Discharge Order (Routine); Ordered 04/01/18 Ordered By: Hafsa Baldwin Cardiology Clear for Discharge (Routine); Ordered 04/01/18 Ordered By: Lien Lema Discharge Details Anticipated Discharge Date: 04/01/18 Physicians Team ED Provider: Vinh Soto Primary Care Provider: Dom Rosas Attending Provider: Hafsa Baldwin Other Providers: Erick Smith ; Candy Millan ; Lien Lema Status ED Status: Left Department Discharge Information Discharge Date/Time: 03/30/18 21:10
[2018-03-30 19:30] LABS: Albumin 3.5 g/dL (3.4-5.0); Anion Gap 9 meq/L (5-15); Aspartate Aminotransferase 15 U/L (15-37); Blood Urea Nitrogen 22 mg/dL (7-18); Calcium 8.6 mg/dL (8.5-10.1); Carbon Dioxide 26.2 meq/L (21.0-32.0); Chloride 102 meq/L (98-107); Glomerular Filtration Rate 57 mL/min (>89); Glucose,Random 115 mg/dL (74-106); Potassium 3.7 meq/L (3.5-5.1); Sodium 137 meq/L (136-145)
[2018-03-30 19:34] LABS: Alanine Aminotransferase 20 U/L (12-78); Alkaline Phosphatase 82 U/L (45-117); Total Protein 6.9 g/dL (6.4-8.2)
[2018-03-30] MEDS ORDERED: Gadobutrol PF 10 MMOL/10 ML Vial (for RAD) IV.SIG ONE (20:04)
--- NOTE | 2018-03-30 20:37 | MR ---
EXAM DATE: 03/30/2018 8:25 PM EDT AGE/SEX: 72 years / Male INDICATIONS: . Visual disturbances. CLINICAL DATA: This is the patient's initial encounter. Patient reports that signs and symptoms have been present for 1 day and indicates a pain score of 0/10. MEDICAL/SURGICAL HISTORY: . Skin CA. Appendectomy. Tonsillectomy. Umbilical hernia repair. COMPARISON: No prior exams available for comparison. TECHNIQUE: Multiplanar, multisequence examination of the brain was performed without and with 10 ml G adavist (gadobutrol) contrast as a single exam dose. FINDINGS: Cerebrum: Probable small remote right basal ganglia lacunar infarct. Mild diffuse cerebral atrophy. The ventricles are normal for age. No evidence of midline shift, mass lesion, hemorrhage or acute in farction. No extraaxial fluid collections are seen. The pituitary gland and suprasellar cistern are normal in configuration. White Matter: No significant signal abnormalities are seen in the white matter. Posterior Fossa: Low-lying cerebellar tonsils. The cerebellum and brainstem are intact. The 4th vent ricle is midline. The cerebellopontine angle is unremarkable. The cerebellar tonsils are normal in position. Diffusion Imaging: No focal areas of restricted diffusion are seen. No evidence of acute infarction . Extracranial: The visualized portions of the orbits and paranasal sinuses are unremarkable. Post Contrast: No abnormal areas of parenchymal or dural enhancement. No evidence of blood-brain ba rrier breakdown. CONCLUSION: 1. Senescent changes with remote small right basal ganglia lacunar infarct. 2. No acute intracranial abnormality. Specifically, no evidence for acute infarction, mass or hemorr juan. Electronically signed by: Naveed Jimenez MD 03/30/2018 8:36 PM EDT
[2018-03-30 20:48] LABS: Activated Partial Thrombo Time 25.4 sec (24.3-30.1); INR 1.1 Ratio; Prothrombin Time 11.4 sec (9.8-11.6)
[2018-03-30] MEDS: Metoprolol Tartrate 25 MG Tablet PO SCH (20:57)
[2018-03-30] MEDS ORDERED: BRINZOLAMIDE BRIMONIDINE OPTH EACH EYE SCH (21:00)
--- NOTE | 2018-03-30 22:29 | P.HPIM ---
History of Present Illness Primary Care Physician: Dom Rosas History of Present Illness: 72-year-old male with a history of atrial fibrillation, patient of Dr. Benavides 's, who underwent atrial fibrillation ablation at [facility] on performed by Dr. Horner. Patient reports that after the procedure, he is been having visual changes described as bubbles and wavy lines that he went to [facility] who recommended he present to ED for carotid ultrasound and TIA workup. Patient did hold his Eliquis for a total of 2 days periprocedurally, but was restarted on night.. Patient denies any unilateral weakness. Denies any fevers or chills. Denies chest pain or shortness of breath. He reports that currently vision changes have resolved. He denies ever having a headache. Review of Systems All other systems reviewed negative except as stated in HPI COUNT INCLUDES THE [facility] - History History Provided By: Patient - Medical History Medical History: Medical History (Last Reviewed 03/30/18 @ 22:21 by Jayy Paz MD) Afib GERD (gastroesophageal reflux disease) Hernia Hx of myocardial infarction - Surgical History Surgical History: Surgical History (Last Reviewed 03/30/18 @ 22:21 by Jayy Paz MD) H/O knee surgery S/P ablation of atrial fibrillation - Family History Family History: Family History (Last Updated 03/30/18 @ 22:22 by Jayy Paz MD) Mother Heart problem Father Heart problem - Tobacco History Second Hand Smoke Exposure: No Tobacco Use In Past 30 Days: No Smoking Status: Never smoker Tobacco Type: Cigarettes - Alcohol History How Often Do You Have a Drink Containing Alcohol: Never - Substance Use History Substance History: No History of Abuse - Travel History Recent Travel in the [place] Within the Last 8 Weeks: No Recent Travel Out of the Country Within the Last 8 Weeks: No - Immunization History Tetanus Immunization: Unsure Medications and Allergies Active Medications: Active Medications Apixaban (Eliquis) 5 mg PO BID [facility] Last Admin: 03/30/18 20:42 Dose: 5 mg Atorvastatin Calcium (Lipitor) 20 mg PO HS [facility] Last Admin: 03/30/18 20:57 Dose: 20 mg Finasteride (Proscar) 5 mg PO DAILY [facility] Sodium Chloride (Ns Inj) 1,000 mls @ 70 mls/hr IV.CONT .[id number] [facility] Last Admin: 03/30/18 18:45 Dose: 70 mls/hr Latanoprost (Xalatan 0.005% Opth Drops) 1 drop EACH EYE [facility] Metoprolol Tartrate (Lopressor) 25 mg PO BID [facility] Last Admin: 03/30/18 20:57 Dose: 25 mg Pantoprazole Sodium (Protonix) 20 mg PO DAILY [facility] Pt Own Med: Netarsudil ( Rhopressa 0.02%) Opth Soln. 0 each EACH EYE DAILY@ 1800 [facility] Pt Own Med: Brinzolamide- Brimonidine[ Simbrinza] Opth Soln 0 each EACH EYE BID [facility] Tamsulosin HCl (Flomax) 0.4 mg PO DAILY [facility] Allergies Allergy/AdvReac Type Severity Reaction Status Date / Time No Known Allergies Allergy Unverified 11/11/17 16:46 Home Medications Medication Instructions Recorded Confirmed Type apixaban [Eliquis] 5 mg PO BID 03/30/18 03/30/18 History atorvastatin [Lipitor] 20 mg PO HS 03/30/18 03/30/18 History brinzolamide-brimonidine 1 drp EACH EYE BID 03/30/18 03/30/18 History [Simbrinza] finasteride 5 mg PO DAILY 03/30/18 03/30/18 History latanoprost 1 drp EACH EYE QPM 03/30/18 03/30/18 History metoprolol tartrate 25 mg PO BID 03/30/18 03/30/18 History netarsudil [Rhopressa] 1 drp EACH EYE QPM 03/30/18 03/30/18 History omeprazole 20 mg PO DAILY 03/30/18 03/30/18 History tamsulosin 0.4 mg PO DAILY 03/30/18 03/30/18 History Exam Vital signs: Vital Signs 03/30/18 17:48 03/30/18 18:03 03/30/18 20:55 Temperature 98.9 F Pulse Rate 75 82 Respiratory Rate 16 16 Blood Pressure 148/72 H 139/67 155/70 H Pulse Oximetry 97 97 Intake & Output 03/30/18 03/30/18 03/31/18 06:59 18:59 06:59 Weight 97.522 kg Narrative: GENERAL: Sitting up in bed. Appears comfortable. SKIN: Warm and dry. HEAD: Atraumatic. Normocephalic. EYES: Pupils equal and round. No scleral icterus. No injection or drainage. ENT: No nasal bleeding or discharge. Mucous membranes pink and moist. NECK: Trachea midline. No JVD. CARDIOVASCULAR: Regular rate and rhythm. RESPIRATORY: No accessory muscle use. Clear to auscultation. Breath sounds equal bilaterally. GASTROINTESTINAL: Abdomen soft, non-tender, nondistended. Hepatic and splenic margins not palpable. MUSCULOSKELETAL: Extremities without clubbing, cyanosis, or edema. No obvious deformities. NEUROLOGICAL: Awake and alert. No obvious cranial nerve deficits. Motor grossly within normal limits. Five out of 5 muscle strength in the arms and legs. Normal speech. Patient does have larger pupil on the right, however both are reactive to light. Patient does report having a dilated eye exam earlier today PSYCHIATRIC: Appropriate mood and affect; insight and judgment normal. Results - Labs CBC & Chem 7: 03/30/18 18:34 03/30/18 18:34 Labs: Short CBC 03/30/18 Range/Units 18:34 WBC 11.8 H (4.0-11.0) th/mm3 Hgb 13.0 (13.0-17.0) gm/dL Hct 37.8 L (39.0-51.0) % Plt Count 231 (150-450) th/mm3 BMP 03/30/18 18:34 Sodium 137 Potassium 3.7 Chloride 102 Carbon Dioxide 26.2 BUN 22 H Creatinine 1.25 Calcium 8.6 Liver Function 03/30/18 Range/Units 18:34 Total Bilirubin 0.5 (0.2-1.0) mg/dL AST 15 (15-37) U/L ALT 20 (12-78) U/L Alkaline Phosphatase 82 (45-117) U/L Albumin 3.5 (3.4-5.0) g/dL - Imaging Impressions Head MRI 03/30/18 18:16 CONCLUSION: 1. Senescent changes with remote small right basal ganglia lacunar infarct. 2. No acute intracranial abnormality. Specifically, no evidence for acute infarction, mass or hemorrhage. Head CT 03/30/18 18:17 CONCLUSION: 1. Paranasal sinus mucosal disease. 2. Senescent changes without acute intracranial abnormality. . Caprini VTE Risk Assessment Caprini VTE Risk Assessment: Moderate/High Risk (score >= 2) Caprini Risk Assessment Model: Point Value = 1 Point Value = 2 Point Value = 3 Point Value = 5 Age 41-60 Minor surgery BMI > 25 kg/m2 Swollen legs Varicose veins or History of unexplained or recurrent spontaneous Oral contraceptives or hormone replacement Sepsis (< 1 month) Serious lung disease, including pneumonia (< 1 month) Abnormal pulmonary function Acute myocardial infarction Congestive heart failure (< 1 month) History of inflammatory bowel disease Medical patient at bed rest Age 61-74 Arthroscopic surgery Major open surgery (> 45 min) Laparoscopic surgery (> 45 min) Malignancy Confined to bed (> 72 hours) Immobilizing plaster cast Central venous access Age >= 75 History of VTE Family history of VTE Factor V Leiden Prothrombin [id number] Lupus anticoagulant Anticardiolipin antibodies Elevated serum homocysteine Heparin-induced thrombocytopenia Other congenital or acquired thrombophilia Stroke (< 1 month) Elective arthroplasty Hip, pelvis, or leg fracture Acute spinal cord injury (< 1 month) Prophylaxis Regimen: Total Risk Factor Score Risk Level Prophylaxis Regimen 0-1 Low Early ambulation 2 Moderate Order ONE of the following: *Sequential Compression Device (SCD) *Heparin 5000 units SQ BID 3-4 Higher Order ONE of the following medications: *Heparin 5000 units SQ TID *Enoxaparin/Lovenox 40 mg SQ daily (WT < 150 kg, CrCl > 30 mL/min) *Enoxaparin/Lovenox 30 mg SQ daily (WT < 150 kg, CrCl > 10-29 mL/min) *Enoxaparin/Lovenox 30 mg SQ BID (WT < 150 kg, CrCl > 30 mL/min) AND/OR *Sequential Compression Device (SCD) 5 or more Highest Order ONE of the following medications: *Heparin 5000 units SQ TID (Preferred with Epidurals) *Enoxaparin/Lovenox 40 mg SQ daily (WT < 150 kg, CrCl > 30 mL/min) *Enoxaparin/Lovenox 30 mg SQ daily (WT < 150 kg, CrCl > 10-29 mL/min) *Enoxaparin/Lovenox 30 mg SQ BID (WT < 150 kg, CrCl > 30 mL/min) AND *Sequential Compression Device (SCD) Assessment and Plan - Plan //Visual changes Possible amaurosis fugax -Recently held Eliquis and had A. fib ablation. Head CT, MRI negative for acute findings however does show old lacunar infarct. = Consult neurology, ophthalmology. Check carotid ultrasound and echocardiogram. ESR not elevated. Patient without headache. //History of atrial fibrillation. Continue home medications. Continue Eliquis //Hyperlipidemia. Continue home medications. //GERD. Chronic. Continue home medications. 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 Continue home drops. Discussed Condition With: Patient, nurse, family bedside, ED physician.. H&P: Quality - VTE Deep Vein Thrombosis/Pulmonary Embolism Present on Admission: No
[2018-03-31] MEDS: Metoprolol Tartrate 25 MG Tablet PO SCH ×2 (09:32→20:23)
[2018-03-31] MEDS: Finasteride 5 MG Tablet PO SCH (09:33)
[2018-03-31] MEDS: Pantoprazole Sodium 20 MG DR Tablet PO SCH (09:33)
[2018-03-31] MEDS: Sod Chloride 0.9% Inj 1,000 ML IV.CONT SCH ×2 (09:35→23:26)
--- NOTE | 2018-03-31 10:28 | US ---
EXAM DATE: 03/31/2018 10:19 AM EDT AGE/SEX: 72 years / Male INDICATIONS: Visual changes possible amaurosis fugax. CLINICAL DATA: This is the patient's initial encounter. Patient reports that signs and symptoms have been present for 1 day and indicates a pain score of 0/10. MEDICAL/SURGICAL HISTORY: Myocardial infarction. Gastroesophageal reflux disease. Atrial fibri llation. . Knee surgery. Ablation for atrial fibrillation. COMPARISON: No prior exams available for comparison. VELOCITY PARAMETERS: ICA/CCA Ratio: Right 0.8 , Left 0.7 ICA: Right 83 cm/sec, Left 88 cm/sec CCA: Right 110 cm/sec, Left 127 cm/sec ECA: Right 108 cm/sec, Left 110 cm/sec Vertebral: Right 47 cm/sec antegrade, Left 56 cm/sec antegrade FINDINGS: Right Carotid: There is mild calcified and noncalcified plaque in the carotid bulb and proximal inte rnal carotid artery.The waveforms are within normal limits. Left Carotid: There is mild calcified and noncalcified plaque in the carotid bulb. The waveforms are within normal limits. Other: None. CONCLUSION: 1. Right Internal Carotid Artery: Findings indicate <50% stenosis. 2. Left Internal Carotid Artery: Findings indicate <50% stenosis. Electronically signed by: Evangelista Villarreal MD 03/31/2018 10:26 AM EDT
--- NOTE | 2018-03-31 10:57 | P.PN ---
Subjective Interval history: Says vision is improving since yesterday. No headache. No chest pain or sob. Symptoms subsided since yesterday. No focal or motor deficit. Physical Exam Vital signs: Vital Signs 03/30/18 17:48 03/30/18 18:03 03/30/18 20:55 Temperature 98.9 F Pulse Rate 75 82 Respiratory Rate 16 16 Blood Pressure 148/72 H 139/67 155/70 H Pulse Oximetry 97 97 03/31/18 00:00 03/31/18 04:00 03/31/18 08:00 Temperature 98.1 F 98.4 F 99.3 F Pulse Rate 57 L 60 63 Respiratory Rate 18 17 16 Blood Pressure 101/57 L 129/72 133/71 Pulse Oximetry 99 99 99 Intake & Output 03/30/18 03/31/18 03/31/18 18:59 06:59 18:59 Intake Total 1000 / 1000 Output Total 500 / 500 Balance -500 / -500 1000 / 1000 Weight 97.522 kg Intake: IV 1000 / 1000 NS Inj 1,000 ML @ 70 mls/hr IV. 1000 / 1000 CONT .[id number] [facility] Rx#:[id number] Output: Urine 500 / 500 Narrative: GENERAL: Pleasant 72 yo male, appears in nad. CARDIOVASCULAR: Regular rate and rhythm. RESPIRATORY: No accessory muscle use. Clear to auscultation. Breath sounds equal bilaterally. GASTROINTESTINAL: Abdomen soft, non-tender, nondistended. Hepatic and splenic margins not palpable. MUSCULOSKELETAL: Extremities without clubbing, cyanosis, or edema. No obvious deformities. NEUROLOGICAL: Awake and alert. No obvious cranial nerve deficits. Motor grossly within normal limits. Five out of 5 muscle strength in the arms and legs. Normal speech. Patient does have larger pupil on the right, however both are reactive to light. Patient does report having a dilated eye exam earlier today PSYCHIATRIC: Appropriate mood and affect; insight and judgment normal. Results - Labs CBC & Chem 7: 03/30/18 18:34 03/30/18 18:34 Laboratory Results - last 24 hr 03/30/18 03/30/18 03/30/18 18:34 18:34 18:34 WBC 11.8 H RBC 4.39 L Hgb 13.0 Hct 37.8 L MCV 86.1 MCH 29.7 MCHC 34.5 RDW 14.8 Plt Count 231 MPV 8.2 Neut % (Auto) 72.8 H Lymph % (Auto) 17.4 [place] % (Auto) 8.9 H Eos % (Auto) 0.6 Baso % (Auto) 0.3 Neut # (Auto) 8.6 H Lymph # (Auto) 2.0 [place] # (Auto) 1.1 H Eos # (Auto) 0.1 Baso # (Auto) 0.0 WBC Differential . Differential Comment Auto diff final ESR PT INR APTT Sodium 137 Potassium 3.7 Chloride 102 Carbon Dioxide 26.2 Anion Gap 9 BUN 22 H Creatinine 1.25 Estimated GFR 57 L Random Glucose 115 H Calcium 8.6 Total Bilirubin 0.5 AST 15 ALT 20 Alkaline Phosphatase 82 Total Protein 6.9 Albumin 3.5 Blood Type A Negative Antibody Screen Negative 03/30/18 03/30/18 18:34 20:17 WBC RBC Hgb Hct MCV MCH MCHC RDW Plt Count MPV Neut % (Auto) Lymph % (Auto) [place] % (Auto) Eos % (Auto) Baso % (Auto) Neut # (Auto) Lymph # (Auto) [place] # (Auto) Eos # (Auto) Baso # (Auto) WBC Differential Differential Comment ESR 7 PT 11.4 INR 1.1 APTT 25.4 Sodium Potassium Chloride Carbon Dioxide Anion Gap BUN Creatinine Estimated GFR Random Glucose Calcium Total Bilirubin AST ALT Alkaline Phosphatase Total Protein Albumin Blood Type Antibody Screen - Imaging Impressions Head MRI 03/30/18 18:16 CONCLUSION: 1. Senescent changes with remote small right basal ganglia lacunar infarct. 2. No acute intracranial abnormality. Specifically, no evidence for acute infarction, mass or hemorrhage. Head CT 03/30/18 18:17 CONCLUSION: 1. Paranasal sinus mucosal disease. 2. Senescent changes without acute intracranial abnormality. . Carotid Doppler Study 03/31/18 00:00 CONCLUSION: 1. Right Internal Carotid Artery: Findings indicate <50% stenosis. 2. Left Internal Carotid Artery: Findings indicate <50% stenosis. Assessment and Plan - Plan Visual changes Possible amaurosis fugax -Recently held Eliquis and had A. fib ablation. Head CT, MRI negative for acute findings however does show old lacunar infarct. Consult neurology, ophthalmology. Carotid ultrasound reviewed and findings discussed with the patient and ophthalmology Dr Millan. Echocardiogram pending ESR not elevated. Patient without headache, he is asymptomatic at this time. No plan for surgical intervention, resume diet History of atrial fibrillation. S/p recent ablation. Follows with Dr Bain and EP Dr Sharif. Continue home medications. Continue Eliquis. Stable so far Hyperlipidemia. Continue home medications. GERD. Chronic. Continue home medications. 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 Continue home drops. Discussed Condition With: Patient, nurse, Dr Millan ophthalmology
[2018-03-31] MEDS ORDERED: Gadobutrol PF 10 MMOL/10 ML Vial (for RAD) IV.SIG ONE (14:25)
--- NOTE | 2018-03-31 14:50 | P.CON ---
History of Present Illness Service: Ophthalmology Reason for Consult: temporary visual changes Primary Care Provider: Dom Rosas History of Present Illness: 72-year-old male presenting to ED yesterday after having temporary visual changes. Patient underwent atrial fibrillation ablation at [facility] on morning, performed by Dr. Horner. On Monday he was discharged and went home. At home he had a 30 minute episode which he describes as blurry vision, zig zag lines and LED lights - unsure if it was one eye or both eyes. After the episode resolved, he has been back to baseline as far as his vision goes with no more episodes. He denies having a headache with or after the episode. 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 Dietz, at [facility], who did a full dilated exam and peripheral visual field test and thought it was most likely an ocular migraine. Because of his recent cardiac procedure she felt it was best if he went to the ED for carotid ultrasound and TIA workup. CT head - no acute changes. MRI brain - old lacunar infarct. Carotid Doppler shows <50% blockage on both sides. Ocular history significant for glaucoma - using latanoprost qhs OU, Simbrinza TID OU, Rhopressa qhs OU. [facility] - History History Provided By: Patient - Medical History Medical History: Medical History (Last Reviewed 03/30/18 @ 22:21 by Jayy Paz MD) Afib GERD (gastroesophageal reflux disease) Hernia Hx of myocardial infarction - Surgical History Surgical History: Surgical History (Last Reviewed 03/30/18 @ 22:21 by Jayy Paz MD) H/O knee surgery S/P ablation of atrial fibrillation - Family History Family History: Family History (Last Updated 03/30/18 @ 22:22 by Jayy Paz MD) Mother Heart problem Father Heart problem - Tobacco History Second Hand Smoke Exposure: No Tobacco Use In Past 30 Days: No Smoking Status: Never smoker Tobacco Type: Cigarettes - Alcohol History How Often Do You Have a Drink Containing Alcohol: Never - Substance Use History Substance History: No History of Abuse - Travel History Recent Travel in the [place] Within the Last 8 Weeks: No Recent Travel Out of the Country Within the Last 8 Weeks: No - Immunization History Tetanus Immunization: Unsure Medications and Allergies Active Medications: Active Medications Apixaban (Eliquis) 5 mg PO BID [facility] Last Admin: 03/31/18 09:33 Dose: 5 mg Atorvastatin Calcium (Lipitor) 20 mg PO HS [facility] Last Admin: 03/30/18 20:57 Dose: 20 mg Finasteride (Proscar) 5 mg PO DAILY [facility] Last Admin: 03/31/18 09:33 Dose: 5 mg Sodium Chloride (Ns Inj) 1,000 mls @ 70 mls/hr IV.CONT .[id number] [facility] Last Admin: 03/31/18 09:35 Dose: 70 mls/hr Latanoprost (Xalatan 0.005% Opth Drops) 1 drop EACH EYE [facility] Metoprolol Tartrate (Lopressor) 25 mg PO BID [facility] Last Admin: 03/31/18 09:32 Dose: 25 mg Pantoprazole Sodium (Protonix) 20 mg PO DAILY [facility] Last Admin: 03/31/18 09:33 Dose: 20 mg Pt Own Med: Brinzolamide- Brimonidine[ Simbrinza] Opth Soln 0 each EACH EYE BID [facility] Last Admin: 03/30/18 23:07 Dose: Not Given Pt Own Med: Netarsudil ( Rhopressa 0.02%) Opth Soln. 0 each EACH EYE DAILY@ 1800 [facility] Tamsulosin HCl (Flomax) 0.4 mg PO DAILY [facility] Last Admin: 03/31/18 09:33 Dose: 0.4 mg Allergies Allergy/AdvReac Type Severity Reaction Status Date / Time No Known Allergies Allergy Unverified 11/11/17 16:46 Home Medications Medication Instructions Recorded Confirmed Type apixaban [Eliquis] 5 mg PO BID 03/30/18 03/30/18 History atorvastatin [Lipitor] 20 mg PO HS 03/30/18 03/30/18 History brinzolamide-brimonidine 1 drp EACH EYE BID 03/30/18 03/30/18 History [Simbrinza] finasteride 5 mg PO DAILY 03/30/18 03/30/18 History latanoprost 1 drp EACH EYE QPM 03/30/18 03/30/18 History metoprolol tartrate 25 mg PO BID 03/30/18 03/30/18 History netarsudil [Rhopressa] 1 drp EACH EYE QPM 03/30/18 03/30/18 History omeprazole 20 mg PO DAILY 03/30/18 03/30/18 History tamsulosin 0.4 mg PO DAILY 03/30/18 03/30/18 History Physical Exam Vital signs: Vital Signs 03/30/18 17:48 03/30/18 18:03 03/30/18 20:55 Temperature 98.9 F Pulse Rate 75 82 Respiratory Rate 16 16 Blood Pressure 148/72 H 139/67 155/70 H Pulse Oximetry 97 97 03/31/18 00:00 03/31/18 04:00 03/31/18 08:00 Temperature 98.1 F 98.4 F 99.3 F Pulse Rate 57 L 60 63 Respiratory Rate 18 17 16 Blood Pressure 101/57 L 129/72 133/71 Pulse Oximetry 99 99 99 03/31/18 12:00 03/31/18 13:00 Temperature 98.6 F Pulse Rate 61 66 Respiratory Rate 16 Blood Pressure 138/81 Pulse Oximetry 96 Intake & Output 03/30/18 03/31/18 03/31/18 18:59 06:59 18:59 Intake Total 1000 / 1000 Output Total 500 / 500 600 / 600 Balance -500 / -500 400 / 400 Weight 97.522 kg Intake: IV 1000 / 1000 NS Inj 1,000 ML @ 70 mls/hr IV. 1000 / 1000 CONT .[id number] [facility] Rx#:[id number] Output: Urine 500 / 500 600 / 600 - Detailed Eye Exam Comments: Va cc at near OD 20/20, OS 20/20 EOM full OU, no diplopia CVF full OU Pupils 2-1 no APD OU IOP 15, 15 mm Hg Anterior exam OD - normal eyelid, C/S W&Q, K clear, AC deep, pupil round, +NS OS - normal eyelid, C/S W&Q, K clear, AC deep, pupil round, +NS Dilated exam - deferred - done yesterday by Dr. Dietz Assessment and Plan - Assessment (1) Ocular migraine Code(s): G43.109 - Migraine with aura, not intractable, without status migrainosus Status: Acute Plan: Most likely cause of patient's symptoms given the history and normal exam. Follow up as outpatient PRN.
--- NOTE | 2018-03-31 15:40 | MR ---
EXAM DATE: 03/31/2018 3:07 PM EDT AGE/SEX: 72 years / Male INDICATIONS: . Visual disturbances. CLINICAL DATA: This is the patient's initial encounter. Patient reports that signs and symptoms have been present for 2 days and indicates a pain score of 0/10. MEDICAL/SURGICAL HISTORY: Carcinoma, skin cancer. Appendectomy. Tonsillectomy. Umbilical teresita ia repair. Bilateral knee replacements. COMPARISON: . TECHNIQUE: 10cc ml Gadavist (gadobutrol) contrast infused MRA (single exam dose) of the extracrania l circulation was performed using a neurovascular coil. Postprocessing was performed, including rota ting sub-volume maximum intensity projections of each carotid artery, rotating full-volume maximum in tensity projections of both carotid arteries, sagittal and coronal sliding thin-slab reformations of each carotid artery, and left oblique sliding thin-slab reformation through the aortic arch to includ e the origin of the arch branch vessels. FINDINGS: Aortic Arch : There is a three-vessel origin of the great vessels from the aorta. No evidence of o stial narrowing. Right Carotid : The common carotid artery is intact. The carotid bulb has a normal configuration wi thout ulceration or narrowing. The internal carotid artery lumen is smooth without stenosis. The ex ternal carotid artery is intact. Left Carotid : The common carotid artery is intact. The carotid bulb has a normal configuration wit hout ulceration or narrowing. The internal carotid artery lumen is smooth without stenosis. The ext ernal carotid artery is intact. Vertebrals : The vertebral arteries have a symmetric diameter. No stenotic lesions are seen. CONCLUSION: 1. Negative MRA Carotids. Percent stenosis is calculated using the diameter of the stenotic region over the diameter of the nor mal distal internal carotid artery Electronically signed by: Zachary Catalan MD 03/31/2018 3:38 PM EDT
--- NOTE | 2018-03-31 15:41 | MR ---
EXAM DATE: 03/31/2018 3:07 PM EDT AGE/SEX: 72 years / Male INDICATIONS: CVA. Visual disturbances. CLINICAL DATA: This is the patient's initial encounter. Patient reports that signs and symptoms have been present for 2 days and indicates a pain score of 0/10. MEDICAL/SURGICAL HISTORY: Carcinoma, skin cancer. Appendectomy. Tonsillectomy. Umbilical teresita ia repair. Bilateral knee replacements. COMPARISON: [facility] [place], MR HEAD W & W/O CONTRAST, 03/30/2018. [facility] [place], CT HEAD W/O CONTRAST, 03/30/2018. . TECHNIQUE: 3D [id number] MRA was performed. Source images, multiplanar STS MIP, and 3D volum e MIP reconstructions were reviewed. FINDINGS: There is excellent visualization of the major intracranial arteries out to the second-order branch ve ssels. There is no evidence for aneurysm, vessel truncation or stenosis, and no evidence for vascula r malformation. CONCLUSION: 1. Negative MRA [place] ([place] non contrast. Electronically signed by: Zachary Catalan MD 03/31/2018 3:40 PM EDT
[2018-03-31 17:30] LABS: Thyroid Stimulating Hormone 0.965 uIU/mL (0.358-3.740)
--- NOTE | 2018-03-31 17:57 | ECHRPT ---
Indication: CVA CONCLUSIONS The left ventricular systolic function is low normal with an estimated ejection fraction in the rang e of 50- 55%. Wall thickness is normal. Normal left ventricular size. Diffuse calcification of the aortic valve. Aortic valve sclerosis is present. There is mild tricuspid valve regurgitation. The estimated pulmonary arterial pressure is 35.4 mmHg. Mild pulmonary valve regurgitation. BP: / HR: Rhythm: Sinus MEASUREMENTS (Male / Female) Normal Values Technical Quality:Fair 2D ECHO LV Diastolic Diameter PLAX 4.9 cm 4.2 - 5.9 / 3.9 - 5.3 cm LV Systolic Diameter PLAX 3.3 cm IVS Diastolic Thickness 1.0 cm 0.6 - 1.0 / 0.6 - 0.9 cm LVPW Diastolic Thickness 1.0 cm 0.6 - 1.0 / 0.6 - 0.9 cm LV Relative Wall Thickness 0.4 RV Internal Dim ED PLAX 3.4 cm LVOT Diameter 2.2 cm LA Systolic Diameter LX 3.9 cm 3.0 - 4.0 / 2.7 - 3.8 cm Ascending Aorta Diameter 3.3 cm M-MODE AV Cusp Separation MM 1.0 cm DOPPLER AV Peak Velocity 193.5 cm/s AV Peak Gradient 15.0 mmHg AV Mean Gradient 7.0 mmHg AV Velocity Time Integral 32.6 cm LVOT Peak Velocity 123.7 cm/s LVOT Peak Gradient 6.1 mmHg LVOT Velocity Time Integral 21.4 cm AV Area Cont Eq vti 2.5 cm AV Area Cont Eq pk 2.4 cm MV Area PHT 3.7 cm Mitral E Point Velocity 81.4 cm/s Mitral A Point Velocity 66.6 cm/s Mitral E to A Ratio 1.2 LV E' Lateral Velocity 6.9 cm/s Mitral E to LV E' Lateral Ratio 11.8 LV E' Septal Velocity 8.7 cm/s Mitral E to LV E' Septal Ratio 9.4 TR Peak Velocity 252.0 cm/s TR Peak Gradient 25.4 mmHg Right Atrial Pressure 10.0 mmHg Pulmonary Artery Systolic Pressu 35.4 mmHg Right Ventricular Systolic Press 35.4 mmHg FINDINGS LEFT VENTRICLE The left ventricular systolic function is low normal with an estimated ejection fraction in the rang e of 50- 55%. Wall thickness is normal. Normal left ventricular size. RIGHT VENTRICLE Normal right ventricular size and systolic function. LEFT ATRIUM The left atrial size is normal. RIGHT ATRIUM The right atrial size is normal. ATRIAL SEPTUM Normal atrial septal thickness without atrial level shunting by limited color doppler interrogation. AORTA The aortic root and proximal ascending aorta are normal in size on limited imaging. MITRAL VALVE Structurally normal mitral valve. No mitral valve stenosis or regurgitation. AORTIC VALVE Trileaflet aortic valve. Diffuse calcification of the aortic valve. Aortic valve sclerosis is present. TRICUSPID VALVE Structurally normal tricuspid valve. There is mild tricuspid valve regurgitation. The estimated pulmonary arterial pressure is 35.4 mmHg. PULMONARY VALVE Mild pulmonary valve regurgitation. VESSELS The inferior vena cava is normal in size. PERICARDIUM No pericardial effusion. Lien Lema MD, FACC (Electronically Signed) Final Date:31 March 2018 17:57
[2018-03-31] MEDS ORDERED: NETARSUDIL EACH EYE SCH ×2 (18:00)
--- NOTE | 2018-03-31 18:08 | MB ---
cc: Erick Gama MD DATE: 03/31/2018 HISTORY OF PRESENT ILLNESS: A 72-year-old left-handed man with hypertension, hypercholesterolemia, maybe a non-STEMI in 11/2017, it is hard to say. He had that right around knee surgery and then atrial fibrillation for which he has been on Eliquis. Two days ago, which was on , he did not take his Eliquis all day as he had a cardiac ablation and then yesterday at about 2:30 in the afternoon, he suddenly had the onset of a cellophane sensation over about the middle of his vision, just a small spot in both eyes, and then it seemed to last for about 10 minutes, may have gone away for 5 minutes or may not have, and then he had bright lights in his vision there. It lasted about 30 minutes and went away. No facial droop, slurred speech asymmetrical weakness or numbness. No headache. He has never had anything before. He does not have a history of headaches or migraines. 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 He went to see his eye doctor and they sent him over for a carotid ultrasound, thought maybe it was a migraine they said, according to the patient and he has a history of preglaucoma and they gave him some new eyedrops. REVIEW OF SYSTEMS: He denied any diabetes, renal, hepatic, pulmonary disease, thyroid disease, lupus, ulcer, seizure, prior stroke. SOCIAL HISTORY: Nonsmoker. Nondrinker. Lives with his . FAMILY HISTORY: Negative for cancer or stroke. MEDICATIONS AT HOME: 1. Tamsulosin. 2. Omeprazole. 3. Finasteride. 4. Rhopressa. 5. Latanoprost. 6. Simbrinza eyedrops. 7. Metoprolol. 8. Lipitor. 9. Eliquis 5 b.i.d. PHYSICAL EXAMINATION: VITAL SIGNS: Sinus rhythm here, afebrile, T-max 99.3, 61, 16, 138/81, initially 148/72. NECK: There were no carotid bruits. HEENT: Temples are nontender bilaterally. NEUROLOGIC: Pupils are equal. Visual linder are full. Extraocular movements intact without nystagmus. Face is symmetric with normal sensation. Tongue was midline. There is no drift. He has normal strength in upper and lower extremities bilaterally. DTRs are trace throughout. Toes are downgoing bilaterally. Pinprick is intact throughout. He is not ataxic on [id number]. Speech is fluent. He is not aphasic. Gives a good history. LABORATORY STUDIES: His white count is 11.8, otherwise CBC was normal. Sedimentation rate 7. Basic metabolic profile was normal. Serum creatinine 1.25. LFTs are normal. Coags normal. He had a carotid ultrasound that was negative. CT scan was read as aging changes. MRI of the brain was performed. Small old right basal ganglionic infarct. IMPRESSION: Possibly a migraine, although quite a coincidence it happened the day after he did not take his Eliquis for a whole day. Does not sound typical for a stroke, but an acephalgic migraine is considered or TIA. I want to check an MRA of the neck and [place], to look at his vertebrobasilar system and if that is negative and his EEG is performed, he could be discharged. We will just check a troponin on him also and that should be checked before discharge and if there is no clot on the echo, he could be discharged. MD BERLIN White/cresencio , 01:32 PM , 01:40 PM
[2018-03-31] MEDS ORDERED: Latanoprost 0.005% Opth Drops 2.5 ML Bottle EACH EYE SCH (21:00)
--- NOTE | 2018-04-01 00:29 | ECG ---
Date Performed: 03/30/2018 Time Performed: 18:52:56 PTAGE: 72 years EKG: Sinus rhythm RIGHT BUNDLE BRANCH BLOCK ABNORMAL ECG PREVIOUS TRACING : 11/08/2017 02.46 DOCTOR: Aniket Cleveland Interpretating Date/Time 04/01/2018 00:28:28
[2018-04-01] MEDS: Pantoprazole Sodium 20 MG DR Tablet PO SCH (09:35)
[2018-04-01] MEDS: Metoprolol Tartrate 25 MG Tablet PO SCH (09:35)
[2018-04-01] MEDS: Finasteride 5 MG Tablet PO SCH (09:35)
--- NOTE | 2018-04-01 10:56 | P.DS ---
Date of admission: 03/30/18 20:25 Primary care physician: Dom Rosas Brief History from admission: 72-year-old male with a history of atrial fibrillation, patient of Dr. Kennedy muller, who underwent atrial fibrillation ablation at [facility] on performed by Dr. Horner. Patient reports that after the procedure, he is been having visual changes described as bubbles and wavy lines that he went to [facility] who recommended he present to ED for carotid ultrasound and TIA workup. Patient did hold his Eliquis for a total of 2 days periprocedurally, but was restarted on night.. Patient denies any unilateral weakness. Denies any fevers or chills. Denies chest pain or shortness of breath. He reports that currently vision changes have resolved. He denies ever having a headache. DS: Diagnosis - Discharge Diagnosis (1) Ocular migraine Status: Acute DS: Summary Hospital Course: 72-year-old male with a history of atrial fibrillation, patient of Dr. Kennedy muller, who underwent atrial fibrillation ablation at [facility] on performed by Dr. Sharif. Patient reports that after the procedure, he is been having visual changes described as bubbles and wavy lines that he went to [facility] who recommended he present to ED for carotid ultrasound and TIA workup. Patient did hold his Eliquis for a total of 2 days periprocedurally, but was restarted on night.. Patient denies any unilateral weakness. Denies any fevers or chills. Denies chest pain or shortness of breath. He reports that currently vision changes have resolved. Patient presented with visual changes possible amaurosis fugax. Concerned also for TIA on admission. Ophthalmology Dr. Millan was consulted has seen the patient clear patient for discharge. To follow-up with his ophthalmology as outpatient. Head CT and MRI negative. Neurology also was consulted Dr. Duque. Patient had MRA [place] of the brain and was normal. Also MRI neck is negative and Doppler ultrasound of the carotid arteries shows no significant stenosis. Patient had slightly elevated troponin, cardiology Dr. Donaldson was consulted patient was seen by Dr. Lema who cleared patient for discharge. Patient discharged in stable condition to follow-up with PCP and consultants as outpatient. Patient likely has ocular migraines headaches. To follow-up as outpatient . - Time Spent with Patient Total time spent providing and/or coordinating discharge services: Greater than 30 minutes - Quality: VTE Deep Vein Thrombosis/Pulmonary Embolism Present on Admission: No Exam Vital signs: Vital Signs 03/31/18 12:00 03/31/18 13:00 03/31/18 16:22 Temperature 98.6 F 97.7 F Pulse Rate 61 66 65 Respiratory Rate 16 16 Blood Pressure 138/81 148/74 H Pulse Oximetry 96 96 03/31/18 19:49 03/31/18 23:24 04/01/18 03:59 Temperature 98.1 F 98.1 F 98.0 F Pulse Rate 60 60 62 Respiratory Rate 18 18 18 Blood Pressure 151/67 H 128/60 130/62 Pulse Oximetry 95 95 98 04/01/18 07:54 Temperature 98.0 F Pulse Rate 68 Respiratory Rate 16 Blood Pressure 147/71 H Pulse Oximetry 96 Intake & Output 03/31/18 04/01/18 04/01/18 18:59 06:59 18:59 Intake Total 1000 / 1000 Output Total 600 / 600 700 / 700 Balance 400 / 400 -700 / -700 Intake: IV 1000 / 1000 NS Inj 1,000 ML @ 70 mls/hr IV. 1000 / 1000 CONT .[id number] [facility] Rx#:[id number] Output: Urine 600 / 600 700 / 700 Other: # Voids 9 Date of Last Bowel Movement 03/29/18 Narrative: GENERAL: Pleasant 72 yo male, appears in nad. CARDIOVASCULAR: Regular rate and rhythm. RESPIRATORY: No accessory muscle use. Clear to auscultation. Breath sounds equal bilaterally. GASTROINTESTINAL: Abdomen soft, non-tender, nondistended. Hepatic and splenic margins not palpable. MUSCULOSKELETAL: Extremities without clubbing, cyanosis, or edema. No obvious deformities. NEUROLOGICAL: Awake and alert. No obvious cranial nerve deficits. Motor grossly within normal limits. Five out of 5 muscle strength in the arms and legs. Normal speech. Patient does have larger pupil on the right, however both are reactive to light. Patient does report having a dilated eye exam earlier today PSYCHIATRIC: Appropriate mood and affect; insight and judgment normal. Results Procedures completed during hospitalization: no procedures Labs on day of discharge: Labs from last 24 hours 03/31/18 16:18 Vitamin B12 407 TSH 0.965 - Impressions ITS Impressions Head MRI 03/30/18 18:16 CONCLUSION: 1. Senescent changes with remote small right basal ganglia lacunar infarct. 2. No acute intracranial abnormality. Specifically, no evidence for acute infarction, mass or hemorrhage. Head CT 03/30/18 18:17 CONCLUSION: 1. Paranasal sinus mucosal disease. 2. Senescent changes without acute intracranial abnormality. . Carotid Doppler Study 03/31/18 00:00 CONCLUSION: 1. Right Internal Carotid Artery: Findings indicate <50% stenosis. 2. Left Internal Carotid Artery: Findings indicate <50% stenosis. Neck MRA 03/31/18 00:00 CONCLUSION: 1. Negative MRA Carotids. Percent stenosis is calculated using the diameter of the stenotic region over the diameter of the normal distal internal carotid artery Head MRA 03/31/18 13:32 CONCLUSION: 1. Negative MRA [place] ([place]) non contrast. Discharge Plan - Discharge Disposition Patient Disposition: 01 Discharge Home - Discharge Condition Condition: Stable - Discharge Order Discharge Orders: Discharge Order (Routine); Ordered 04/01/18 Ordered By: Hafsa Baldwin Cardiology Clear for Discharge (Routine); Ordered 04/01/18 Ordered By: Lien Lema - Discharge Details Anticipated Discharge Date: 04/01/18 - Physicians Team Primary Care Provider: Dom Rosas Attending Provider: Hafsa Baldwin Other Providers: Erick Smith MD ; Candy Millan MD ; Lien Lema MD
[2018-04-01 12:58] VITALS: O2SAT 97
--- NOTE | 2018-04-01 13:32 | P.PNNEU ---
Subjective Subjective Comments: no vision change some palp Active Medications: Active Medications Apixaban (Eliquis) 5 mg PO BID [facility] Last Admin: 04/01/18 09:35 Dose: 5 mg Atorvastatin Calcium (Lipitor) 20 mg PO HS [facility] Last Admin: 03/31/18 20:23 Dose: 20 mg Finasteride (Proscar) 5 mg PO DAILY [facility] Last Admin: 04/01/18 09:35 Dose: 5 mg Sodium Chloride (Ns Inj) 1,000 mls @ 70 mls/hr IV.CONT .[id number] [facility] Last Admin: 03/31/18 23:26 Dose: Not Given Latanoprost (Xalatan 0.005% Opth Drops) 1 drop EACH EYE HS [facility] Last Admin: 03/31/18 20:26 Dose: 1 drop Metoprolol Tartrate (Lopressor) 25 mg PO BID [facility] Last Admin: 04/01/18 09:35 Dose: 25 mg Pantoprazole Sodium (Protonix) 20 mg PO DAILY [facility] Last Admin: 04/01/18 09:35 Dose: 20 mg Pt Own Med: Brinzolamide- Brimonidine[ Simbrinza] Opth Soln 0 each EACH EYE BID [facility] Last Admin: 03/30/18 23:07 Dose: Not Given Pt Own Med: Netarsudil ( Rhopressa 0.02%) Opth Soln. 0 each EACH EYE DAILY@ 1800 [facility] Last Admin: 03/31/18 18:03 Dose: 1 each Tamsulosin HCl (Flomax) 0.4 mg PO DAILY [facility] Last Admin: 04/01/18 09:35 Dose: 0.4 mg Allergies/Adverse Reactions: Allergies Allergy/AdvReac Type Severity Reaction Status Date / Time No Known Allergies Allergy Unverified 11/11/17 16:46 Physical Exam Vital signs: Vital Signs 03/31/18 16:22 03/31/18 19:49 03/31/18 23:24 Temperature 97.7 F 98.1 F 98.1 F Pulse Rate 65 60 60 Respiratory Rate 16 18 18 Blood Pressure 148/74 H 151/67 H 128/60 Pulse Oximetry 96 95 95 04/01/18 03:59 04/01/18 07:54 04/01/18 09:00 Temperature 98.0 F 98.0 F Pulse Rate 62 68 63 Respiratory Rate 18 16 Blood Pressure 130/62 147/71 H Pulse Oximetry 98 96 04/01/18 12:00 Temperature 98.0 F Pulse Rate 62 Respiratory Rate 14 Blood Pressure 149/75 H Pulse Oximetry 97 Intake & Output 03/31/18 04/01/18 04/01/18 18:59 06:59 18:59 Intake Total 1000 / 1000 Output Total 600 / 600 700 / 700 Balance 400 / 400 -700 / -700 Intake: IV 1000 / 1000 NS Inj 1,000 ML @ 70 mls/hr IV. 1000 / 1000 CONT .[id number] [facility] Rx#:[id number] Output: Urine 600 / 600 700 / 700 Other: # Voids 9 Date of Last Bowel Movement 03/29/18 Narrative: vff face and speech nl Objective Laboratory Results - last 24 hr 03/31/18 04/01/18 16:18 11:51 POC Glucose 94 Vitamin B12 407 TSH 0.965 Review/Management - Review/Management Plan: imp b12 tsh mrax2 nl echo aoV ca++ he will dw cards o/p nurse to check tele for palpitations and call med team if abn ok dc by me if trop neg
--- NOTE | 2018-04-01 14:43 | P.PN ---
Physical Exam Vital signs: Vital Signs 03/31/18 16:22 03/31/18 19:49 03/31/18 23:24 Temperature 97.7 F 98.1 F 98.1 F Pulse Rate 65 60 60 Respiratory Rate 16 18 18 Blood Pressure 148/74 H 151/67 H 128/60 Pulse Oximetry 96 95 95 04/01/18 03:59 04/01/18 07:54 04/01/18 09:00 Temperature 98.0 F 98.0 F Pulse Rate 62 68 63 Respiratory Rate 18 16 Blood Pressure 130/62 147/71 H Pulse Oximetry 98 96 04/01/18 12:00 Temperature 98.0 F Pulse Rate 62 Respiratory Rate 14 Blood Pressure 149/75 H Pulse Oximetry 97 Intake & Output 03/31/18 04/01/18 04/01/18 18:59 06:59 18:59 Intake Total 1000 / 1000 Output Total 600 / 600 700 / 700 Balance 400 / 400 -700 / -700 Intake: IV 1000 / 1000 NS Inj 1,000 ML @ 70 mls/hr IV. 1000 / 1000 CONT .[id number] [facility] Rx#:[id number] Output: Urine 600 / 600 700 / 700 Other: # Voids 9 Date of Last Bowel Movement 03/29/18 Results - Labs CBC & Chem 7: 03/30/18 18:34 03/30/18 18:34 Laboratory Results - last 24 hr 03/31/18 04/01/18 04/01/18 16:18 11:51 13:38 POC Glucose 94 Troponin I 0.17 H Vitamin B12 407 TSH 0.965 - Imaging Impressions Neck MRA 03/31/18 00:00 CONCLUSION: 1. Negative MRA Carotids. Percent stenosis is calculated using the diameter of the stenotic region over the diameter of the normal distal internal carotid artery Head MRA 03/31/18 13:32 CONCLUSION: 1. Negative MRA [place] ([place] non contrast.
[2018-04-01] MEDS ORDERED: Bisacodyl 10 MG Supp RECTAL PRN (14:45)
[2018-04-01] MEDS: Sod Chloride 0.9% Inj 1,000 ML IV.CONT SCH (15:01)
[2018-04-01 16:24] VITALS: BP 133/69; PULSE 64; RESP 16; TEMP 98.1
--- NOTE | 2018-04-01 17:37 | MG ---
cc: Erick Gama MD INDICATIONS: Status post ablation, Ocular migraine. Eliquis. FINDINGS: Diffuse 9 Hz and symmetric posterior dominant rhythm of 9 Hz, 60 microvolts is seen. No hemisphere asymmetry is noted. No epileptiform or seizure activity is seen. No occipital lobe abnormalities were noted, and he fell asleep. He had a snort, did not really reach stage II sleep. IMPRESSION: A normal awake and sleep electroencephalogram. No evidence for a focal or diffuse abnormality. Erick Tilley. MD AKIN GamaM/lc , 03:35 PM , 03:38 PM
--- NOTE | 2018-04-01 18:29 | MB ---
cc: Lien Lema MD DATE: 04/01/2018 REASON FOR CONSULTATION: Elevated troponin. HISTORY OF PRESENT ILLNESS: Mr. Bowden is a pleasant 72-year-old patient of my partners, Dr. Bain and Dr. Sharif. He had an atrial fibrillation ablation on . Monday, he began having some visual changes and was seen by his eye doctor, who diagnosed ocular migraines, but sent him to the emergency room for a carotid ultrasound. The patient was subsequently evaluated for possible TIA/CVA. He has undergone an extensive workup and reports that he has ocular migraines. He does not have any TIA or CVA. Furthermore, the patient denies any cardiac complaints such as chest pain, shortness of breath or palpitations. He reports that he is fairly active and does cardio on a bicycle. He is status post knee replacement over this summer and had a normal stress test prior to his surgery. Again, he denies any cardiac complaints at this time. PAST MEDICAL HISTORY: Significant for atrial fibrillation status post ablation, GERD, hernia, myocardial infarction, hyperlipidemia, and BPH. SURGICAL HISTORY: Bilateral knee replacement and atrial fibrillation ablation. ALLERGIES: NO KNOWN DRUG ALLERGIES. OUTPATIENT MEDICATIONS: Include: 1. Eliquis 5 mg b.i.d. 2. Atorvastatin 20 mg at bedtime. 3. Simbrinza. 4. Finasteride. 5. Latanoprost. 6. Metoprolol 25 mg b.i.d. 7. Rhopressa. 8. Omeprazole. 9. Flomax. SOCIAL HISTORY: The patient does not smoke. FAMILY HISTORY: Noncontributory. PHYSICAL EXAMINATION: VITAL SIGNS: 98.0, 62, 149/75. GENERAL: He is a well-appearing man, who is in no apparent distress. NECK: Free from JVD. LUNGS: Bilaterally clear to auscultation. CARDIOVASCULAR: He has a normal S1 and S2. I do not appreciate any murmurs, rubs or gallops. ABDOMEN: Soft. EXTREMITIES: Free from edema. DIAGNOSTIC DATA: EKG shows normal sinus rhythm. There is a right bundle branch block with some repolarization abnormalities in lead III. LABORATORY DATA: Laboratory values significant for a troponin of 0.17 and a creatinine of 1.25. IMPRESSION: Elevated troponin - This is secondary to the patient's ablation only 3 days ago. He is completely asymptomatic from a cardiac perspective and reports a normal stress test earlier this year. Additionally, his echocardiogram here does show an ejection fraction of 50%-55%. I do not feel that any further cardiac evaluation is required at this point. Ocular migraines - This will be managed by the primary team. Mild carotid disease - This also is currently being managed by the primary team. DISPOSITION: It is reasonable for him to be discharged home from a cardiac perspective. MD PARADISE Thompson/cresencio , 03:32 PM , 03:42 PM
[2018-04-01] MEDS ORDERED: Senna/Docusate Sodium 8.6/50 MG Tablet PO SCH (21:00)
--- NOTE | 2018-04-02 18:08 | ECG ---
Date Performed: 04/01/2018 Time Performed: 14:52:22 PTAGE: 72 years EKG: Sinus rhythm RIGHT BUNDLE BRANCH BLOCK ABNORMAL ECG PREVIOUS TRACING 03/30/18 @ 18.52 Since the previous tracing, no significant change noted DOCTOR: Erick Shelton Interpretating Date/Time 04/02/2018 18:07:01
== END 2018-04-01 16:40 | disposition home or self-care (01) ==
LOC: NEPC 17:37 → NEDA 17:37 → NEPFCDU 21:25
PROVIDERS: ADMIT Hospitalist; ATTEND Hospitalist